=== PATIENT | male | born 1955 | race Caucasian/White ===

== ENCOUNTER 2018-01-24 11:35 | Emergency (ER) | payer OTHER, SELFPAY ==
[2018-01-24 11:44] VITALS: BP 152/74; PULSE 55; RESP 16; TEMP 36.7; O2SAT 98; BMI 26.4
--- NOTE | 2018-01-24 12:06 | ED.EXTPRO ---
HPI - Extremity Problem <Marissa Moraes PA-C - Last Filed: 01/24/18 19:15> General Chief complaint: Extremity Problem,Nontraumatic Stated complaint: POSS BLOOD CLOT LT LEG Time Seen by Provider: 01/24/18 12:06 Source: patient and family Mode of arrival: ambulatory Limitations: no limitations History of Present Illness HPI Narrative: This 62 year old gentleman comes in today due to concern for DVT in his L. leg. Has a history of DVT 5 years ago postoperatively. He states blood testing was done and no genetic predisposition. He states that he started to have calf pain after he did a strenuous climb up [employer] and part [address] up [place] a week ago, and the pain has been gradually worsening. He states that it is the same type of pain that he had with his previous blood clot. They did drive to do the climb, but otherwise has not been immobilized or traveled elsewhere recently. He states that the foot can be a little bit puffy at times but he has not had swelling in the leg. He has or pain with standing long periods, less bothersome with walking a bit. He states that there was no apparent swelling or other signs with his previous DVT either. He did not have any specific known injury on this trip but initially thought was muscle strain. He denies dyspnea, chest pain, nausea, or other new complaints on systems review Related Data Home Medications Medication Instructions Recorded Confirmed multivitamin 1 cap PO EVERY DAY #0 06/20/10 01/24/18 cetirizine [Zyrtec] 1 tab PO DAILY PRN 01/24/18 01/24/18 Previous Rx's Medication Instructions Recorded atorvastatin [Lipitor] 10 mg PO HS #90 tab 07/18/17 levothyroxine 100 mcg PO QAM #90 tab 07/18/17 Allergies Allergy/AdvReac Type Severity Reaction Status Date / Time chlorhexidine [CHLORHEXIDINE] Allergy Mild RASH/HIBICL Verified 01/24/18 11:50 ENS Review of Systems <Marissa Moraes PA-C - Last Filed: 01/24/18 19:15> Review of Systems All systems reviewed & are unremarkable except as noted in HPI and below PFSH <Marissa Moraes PA-C - Last Filed: 01/24/18 19:15> Comment: EtOH 3/week, no street drugs Exam <RAMA Cedillo Last Filed: 01/24/18 19:15> Narrative Exam Narrative: GENERAL APPEARANCE: Patient sitting comfortably, in no distress. NECK/THYROID: Neck supple, no JVD. LUNGS: Clear to auscultation bilaterally. HEART: Regular rate and rhythm without murmur, normal S1, S2, no S3 or S4. EXTREMITIES: No cyanosis or edema. Ankle and calf measurements are equal bilaterally. Bilateral pedal pulses 2+. Minimal left central calf tenderness, none on the right NEUROLOGIC: Alert and oriented, normal speech, gait and coordination. Lower extremity sensation grossly intact Initial Vital Signs Initial Vital Signs: Vital Signs Temperature 98.1 F 01/24/18 11:44 Pulse Rate 55 L 01/24/18 11:44 Respiratory Rate 16 01/24/18 11:44 Blood Pressure 152/74 H 01/24/18 11:44 Pulse Oximetry 98 01/24/18 11:44 <DO Chiquis Chaparro Last Filed: 01/27/18 23:48> Initial Vital Signs Initial Vital Signs: Vital Signs Temperature 98.1 F 01/24/18 11:44 Pulse Rate 55 L 01/24/18 11:44 Respiratory Rate 16 01/24/18 11:44 Blood Pressure 152/74 H 01/24/18 11:44 Pulse Oximetry 98 01/24/18 11:44 Course <RAMA Cedillo Last Filed: 01/24/18 19:15> Orders Ordered: ED Orders 01/24/18 12:14 US periph venous low extrem lt Stat Vital Signs - 8 hr 01/24/18 11:44 01/24/18 13:14 Temperature 98.1 F Pulse Rate 55 L 55 L Respiratory Rate 16 Blood Pressure 152/74 H 122/79 H Pulse Oximetry 98 98 <DO Chiquis Chaparro Last Filed: 01/27/18 23:48> Orders Ordered: ED Orders 01/24/18 12:14 US periph venous low extrem lt Stat Vital Signs - 8 hr 01/24/18 11:44 01/24/18 13:14 Temperature 98.1 F Pulse Rate 55 L 55 L Respiratory Rate 16 Blood Pressure 152/74 H 122/79 H Pulse Oximetry 98 98 MDM - Extremity (Nontraumatic) <Marissa Moraes PA-C - Last Filed: 01/24/18 19:15> Imaging Data Venous US: Radiologist's impression: [address] [address] Ultrasound Report Signed Patient: Neeraj Rodrigues MR#: [id number] : 1955 Acct:[id number] Age/Sex: 62 / M Date of Service: 01/24/18 Loc: ED Accession Number: [id number] Procedure: US periph venous low extrem lt Ordering Provider: Marissa Moraes P.A-C PROCEDURE: US PERIPH VENOUS LOW EXTREM LT INDICATIONS: PAIN; HISTORY DVT TECHNIQUE: Real-time imaging, as well as color and pulse Doppler interrogation, were performed of the lower extremity deep veins from the inguinal ligament to the popliteal fossa. COMPARISON: None. FINDINGS: The deep veins are normally compressible, and free of intraluminal thrombus. Color and pulse Doppler demonstrate normal phasic intraluminal flow. There is normal augmentation response to distal compression maneuver. IMPRESSION: No evidence of left lower extremity deep vein thrombosis. Dictated by: Israel Murphy M.D. on 01/24/2018 at 11:42 Approved by: Israel Murphy M.D. on 01/24/2018 at 11:59 Discharge Plan Departure Patient Disposition: Home Clinical Impression: Pain of left calf Discharge Date/Time: 01/24/18 13:17 Interventions: ED Discharge Assessment Last Done: 01/24/18 13:14 Instructions: DI for Calf Muscle Strain Activity Restrictions/Additional Instructions: Your pain is most likely due to strain from your strenuous climb. Gentle walking is okay. You may want to try [id number] Aleve or ibuprofen for few days to help with pain. You can also take Tylenol as needed. You should return as we talked about if you have acutely worsening symptoms, or new symptoms such as trouble breathing or chest pain. Otherwise, please follow-up with your PCP if this is not improving so that further testing or referral can be done if needed Prescriptions: No Action multivitamin Capsule 1 cap PO EVERY DAY Qty: 0 RF: 0 atorvastatin [Lipitor] 10 MG tablet 10 mg PO HS Qty: 90 RF: 1 levothyroxine 100 MCG tablet 100 mcg PO QAM Qty: 90 RF: 1 cetirizine [Zyrtec] 10 mg Tablet 1 tab PO DAILY PRN (Reason: Allergy Symptoms) RF: 0 Referrals: Manuel Quiroga MD [Primary Care Provider] - <Derrick Lindsey DO - Last Filed: 01/27/18 23:48> Cosign ED Attending Fiona Attestation: I was immediately available in the department for consultation. Documentation has been reviewed. I agree with assessment and plan.
--- NOTE | 2018-01-24 12:14 | DI.US.S_ITS ---
PROCEDURE: US PERIPH VENOUS LOW EXTREM LT INDICATIONS: PAIN; HISTORY DVT TECHNIQUE: Real-time imaging, as well as color and pulse Doppler interrogation, were performed of the lower extremity deep veins from the inguinal ligament to the popliteal fossa. COMPARISON: None. FINDINGS: The deep veins are normally compressible, and free of intraluminal thrombus. Color and pulse Doppler demonstrate normal phasic intraluminal flow. There is normal augmentation response to distal compression maneuver. IMPRESSION: No evidence of left lower extremity deep vein thrombosis. Dictated by: Israel Murphy M.D. on 01/24/2018 at 11:42 Approved by: Israel Murphy M.D. on 01/24/2018 at 11:59
--- NOTE | 2018-01-24 12:17 | ED_ITS ---
HPI - Extremity Problem <Marissa Moraes PA-C - Last Filed: 01/24/18 19:15> General Chief complaint: Extremity Problem,Nontraumatic Stated complaint: POSS BLOOD CLOT LT LEG Time Seen by Provider: 01/24/18 12:06 Source: patient and family Mode of arrival: ambulatory Limitations: no limitations History of Present Illness HPI Narrative: This 62 year old gentleman comes in today due to concern for DVT in his L. leg. Has a history of DVT 5 years ago postoperatively. He states blood testing was done and no genetic predisposition. He states that he started to have calf pain after he did a strenuous climb up [employer] and part way up [place] a week ago, and the pain has been gradually worsening. He states that it is the same type of pain that he had with his previous blood clot. They did drive to do the climb, but otherwise has not been immobilized or traveled elsewhere recently. He states that the foot can be a little bit puffy at times but he has not had swelling in the leg. He has or pain with standing long periods, less bothersome with walking a bit. He states that there was no apparent swelling or other signs with his previous DVT either. He did not have any specific known injury on this trip but initially thought was muscle strain. He denies dyspnea, chest pain, nausea, or other new complaints on systems review Related Data Home Medications Medication Instructions Recorded Confirmed multivitamin 1 cap PO EVERY DAY #0 06/20/10 01/24/18 cetirizine [Zyrtec] 1 tab PO DAILY PRN 01/24/18 01/24/18 Previous Rx's Medication Instructions Recorded atorvastatin [Lipitor] 10 mg PO HS #90 tab 07/18/17 levothyroxine 100 mcg PO QAM #90 tab 07/18/17 Allergies Allergy/AdvReac Type Severity Reaction Status Date / Time chlorhexidine [CHLORHEXIDINE] Allergy Mild RASH/HIBICL Verified 01/24/18 11:50 ENS Review of Systems <Marissa Moraes PA-C - Last Filed: 01/24/18 19:15> Review of Systems All systems reviewed & are unremarkable except as noted in HPI and below PFSH <Marissa Moraes PA-C - Last Filed: 01/24/18 19:15> Comment: EtOH 3/week, no street drugs Exam <RAMA Cedillo Last Filed: 01/24/18 19:15> Narrative Exam Narrative: GENERAL APPEARANCE: Patient sitting comfortably, in no distress. NECK/THYROID: Neck supple, no JVD. LUNGS: Clear to auscultation bilaterally. HEART: Regular rate and rhythm without murmur, normal S1, S2, no S3 or S4. EXTREMITIES: No cyanosis or edema. Ankle and calf measurements are equal bilaterally. Bilateral pedal pulses 2+. Minimal left central calf tenderness, none on the right NEUROLOGIC: Alert and oriented, normal speech, gait and coordination. Lower extremity sensation grossly intact Initial Vital Signs Initial Vital Signs: Vital Signs Temperature 98.1 F 01/24/18 11:44 Pulse Rate 55 L 01/24/18 11:44 Respiratory Rate 16 01/24/18 11:44 Blood Pressure 152/74 H 01/24/18 11:44 Pulse Oximetry 98 01/24/18 11:44 <DO Chiquis Chaparro Last Filed: 01/27/18 23:48> Initial Vital Signs Initial Vital Signs: Vital Signs Temperature 98.1 F 01/24/18 11:44 Pulse Rate 55 L 01/24/18 11:44 Respiratory Rate 16 01/24/18 11:44 Blood Pressure 152/74 H 01/24/18 11:44 Pulse Oximetry 98 01/24/18 11:44 Course <RAMA Cedillo Last Filed: 01/24/18 19:15> Orders Ordered: ED Orders 01/24/18 12:14 US periph venous low extrem lt Stat Vital Signs - 8 hr 01/24/18 11:44 01/24/18 13:14 Temperature 98.1 F Pulse Rate 55 L 55 L Respiratory Rate 16 Blood Pressure 152/74 H 122/79 H Pulse Oximetry 98 98 <DO Chiquis Chaparro Last Filed: 01/27/18 23:48> Orders Ordered: ED Orders 01/24/18 12:14 US periph venous low extrem lt Stat Vital Signs - 8 hr 01/24/18 11:44 01/24/18 13:14 Temperature 98.1 F Pulse Rate 55 L 55 L Respiratory Rate 16 Blood Pressure 152/74 H 122/79 H Pulse Oximetry 98 98 MDM - Extremity (Nontraumatic) <Marissa Moraes PA-C - Last Filed: 01/24/18 19:15> Imaging Data Venous US: Radiologist's impression: [address] [address] Ultrasound Report Signed Patient: Neeraj Rodrigues MR#: [id number] : 1955 Acct:[id number] Age/Sex: 62 / M Date of Service: 01/24/18 Loc: ED Accession Number: [id number] Procedure: US periph venous low extrem lt Ordering Provider: Marissa Moraes P.A-C PROCEDURE: US PERIPH VENOUS LOW EXTREM LT INDICATIONS: PAIN; HISTORY DVT TECHNIQUE: Real-time imaging, as well as color and pulse Doppler interrogation, were performed of the lower extremity deep veins from the inguinal ligament to the popliteal fossa. COMPARISON: None. FINDINGS: The deep veins are normally compressible, and free of intraluminal thrombus. Color and pulse Doppler demonstrate normal phasic intraluminal flow. There is normal augmentation response to distal compression maneuver. IMPRESSION: No evidence of left lower extremity deep vein thrombosis. Dictated by: Israel Murphy M.D. on 01/24/2018 at 11:42 Approved by: Israel Murphy M.D. on 01/24/2018 at 11:59 Discharge Plan Departure Patient Disposition: Home Clinical Impression: Pain of left calf Discharge Date/Time: 01/24/18 13:17 Interventions: ED Discharge Assessment Last Done: 01/24/18 13:14 Instructions: DI for Calf Muscle Strain Activity Restrictions/Additional Instructions: Your pain is most likely due to strain from your strenuous climb. Gentle walking is okay. You may want to try [id number] Aleve or ibuprofen for few days to help with pain. You can also take Tylenol as needed. You should return as we talked about if you have acutely worsening symptoms, or new symptoms such as trouble breathing or chest pain. Otherwise, please follow-up with your PCP if this is not improving so that further testing or referral can be done if needed Prescriptions: No Action multivitamin Capsule 1 cap PO EVERY DAY Qty: 0 RF: 0 atorvastatin [Lipitor] 10 MG tablet 10 mg PO HS Qty: 90 RF: 1 levothyroxine 100 MCG tablet 100 mcg PO QAM Qty: 90 RF: 1 cetirizine [Zyrtec] 10 mg Tablet 1 tab PO DAILY PRN (Reason: Allergy Symptoms) RF: 0 Referrals: Manuel Quiroga MD [Primary Care Provider] - <Derrick Lindsey DO - Last Filed: 01/27/18 23:48> Cosign ED Attending Fiona Attestation: I was immediately available in the department for consultation. Documentation has been reviewed. I agree with assessment and plan.
[2018-01-24 13:14] VITALS: BP 122/79; PULSE 55; O2SAT 98
== END 2018-01-24 13:17 | disposition home or self-care (01) ==
PROVIDERS: Emergency Provider Internal Medicine; PCP Family Medicine
DX: M79.662 Pain in left lower leg (principal)
CPT/HCPCS: 93971; 99282; 99284

== ENCOUNTER → 2018-04-04 08:09 | Outpatient (CLI) | payer OTHER, SELFPAY ==
[2018-04-04 10:19] LABS: Add Manual Diff / Slide Review NO; Basophils Percent Auto 0.3 % (0-2); Eosinophils Percent Auto 1.2 % (2-4); Hematocrit 43.3 % (41-53); Hemoglobin 14.5 g/dL (13.5-17.5); Lymphocytes Percent Auto 31.8 % (25-40); Mean Corpuscular HGB Conc 33.5 % (30-36); Mean Corpuscular Hemoglobin 31.6 PG (26-34); Mean Corpuscular Volume 94.3 fL (80-100); Monocytes Percent Auto 6.9 % (3-14); Neutrophils Absolute Auto 4500 /uL (3000-5900); Neutrophils Percent Auto 59.8 % (50-75); Platelet Count 177 X10^3/uL (150-400); Red Blood Cell Count 4.59 X10^6/uL (4.5-5.9); Red Cell Distribution Width 12.9 % (11.6-14.8); White Blood Cell Count 7.6 X10^3/uL (4.5-11.0)
[2018-04-04 10:30] LABS: Alanine Aminotransferase 29 IU/L (21-72); Albumin 4.2 g/dL (3.5-5.0); Albumin Globulin Ratio 1.6 (1.0-2.8); Alkaline Phosphatase 50 U/L (38-126); Aspartate Aminotransferase 23 IU/L (17-59); BUN Creatinine Ratio 19.1 (6-22); Bilirubin Total 1.1 mg/dL (0.2-1.3); Blood Urea Nitrogen 21 mg/dL (9-20); Calcium 9.3 mg/dL (8.4-10.2); Carbon Dioxide 31 mmol/L (22-32); Chloride 103 mmol/L (98-107); Cholesterol 171 mg/dL (140-199); Estimated Glomerular Filt Rate > 60.0 mL/min (>60); Globulin 2.7 g/dL (1.7-4.1); Glucose 90 mg/dL (80-110); HDL Cholesterol 47 mg/dL (40-60); HEMOLYSIS < 15 (0-50); LDL Cholesterol Calculated 99 mg/dL (<100); Potassium 4.1 mmol/L (3.4-5.1); Sodium 143 mmol/L (137-145); Total Protein 6.9 g/dL (6.3-8.2); Triglycerides 127 mg/dL (35-150)
[2018-04-04 10:56] LABS: TSH w/ Reflex to FT4 3.86 uIU/mL (0.47-4.68)
== END ==
PROVIDERS: PCP Family Medicine; Visit Provider Family Medicine
DX: E03.9 Hypothyroidism, unspecified (principal); E78.5 Hyperlipidemia, unspecified; I10 Essential (primary) hypertension
CPT/HCPCS: 36415; 80053; 80061; 84153; 84443; 85025

== ENCOUNTER → 2019-03-08 08:48 | Outpatient (CLI) | payer OTHER, SELFPAY ==
[2019-03-08 09:34] LABS: Cholesterol 165 mg/dL (140-199); HDL Cholesterol 44 mg/dL (40-60); LDL Cholesterol Calculated 94 mg/dL (<100); Triglycerides 136 mg/dL (35-150)
[2019-03-08 10:39] LABS: Thyroid Stimulating Hormone 2.57 uIU/mL (0.47-4.68)
== END ==
PROVIDERS: PCP Family Medicine; Visit Provider Family Medicine
DX: E03.9 Hypothyroidism, unspecified (principal); Z13.220 Encounter for screening for lipoid disorders; Z13.6 Encounter for screening for cardiovascular disorders
CPT/HCPCS: 80061; 84443

== ENCOUNTER 2020-01-12 11:18 | Emergency (ER) | payer OTHER, SELFPAY ==
[2020-01-12] VITALS (10 sets, daily range): BP systolic 121–143; BP diastolic 71–92; PULSE 49–65; RESP 12–20; TEMP 36.6; O2SAT 98–100; BMI 25.4
--- NOTE | 2020-01-12 11:26 | DI.RAD.S_ITS ---
PROCEDURE: XR CHEST 1V INDICATIONS: chest pain TECHNIQUE: One view of the chest was acquired. COMPARISON: [facility], , CHEST 2 VIEW, 07/24/2009, 15:56. FINDINGS: Surgical changes and devices: None. Lungs and pleura: Lungs are clear. No pleural effusions or pneumothorax. Mediastinum: Mediastinal contours appear normal. Heart size is normal. Bones and chest wall: No suspicious bony lesions. Overlying soft tissues appear unremarkable. IMPRESSION: No acute cardiopulmonary pathology. Dictated by: Jarek Ruvalcaba M.D. on 01/12/2020 at 12:14 Approved by: Jarek Ruvalcaba M.D. on 01/12/2020 at 12:15
[2020-01-12] MEDS: ASPIRIN 81 MG CHEW TAB 324 MG PO (11:36)
[2020-01-12 11:44] LABS: Add Manual Diff / Slide Review NO; Basophils Absolute Auto 0 /uL (0-100); Basophils Percent Auto 0.4 % (0-2); Eosinophils Absolute Auto 100 /uL (0-450); Eosinophils Percent Auto 1.4 % (2-4); Hematocrit 45.4 % (41-53); Hemoglobin 15.2 g/dL (13.5-17.5); Lymphocytes Absolute Auto 1900 /uL (1100-4500); Lymphocytes Percent Auto 18.1 % (25-40); Mean Corpuscular HGB Conc 33.5 % (30-36); Mean Corpuscular Hemoglobin 31.3 PG (26-34); Mean Corpuscular Volume 93.2 fL (80-100); Monocytes Absolute Auto 700 /uL (0-900); Neutrophils Absolute Auto 7700 /uL (1500-7000); Neutrophils Percent Auto 73.1 % (50-75); Platelet Count 163 X10^3/uL (150-400); Red Blood Cell Count 4.87 X10^6/uL (4.5-5.9); Red Cell Distribution Width 13.2 % (11.6-14.8); White Blood Cell Count 10.5 X10^3/uL (4.5-11.0)
[2020-01-12 11:48] LABS: Prothrombin Time 11.6 SECONDS (10.1-12.7)
[2020-01-12 11:51] LABS: PTT Partial Thromboplastin Tim 30 SECONDS (26.4-36.2)
[2020-01-12 11:54] LABS: Alanine Aminotransferase 19 IU/L (<50); Albumin 4.3 g/dL (3.5-5.0); Albumin Globulin Ratio 1.7 (1.0-2.8); Alkaline Phosphatase 69 U/L (38-126); Aspartate Aminotransferase 25 IU/L (17-59); BUN Creatinine Ratio 20.8 (6-22); Bilirubin Total 0.9 mg/dL (0.2-1.3); Blood Urea Nitrogen 20 mg/dL (9-20); Calcium 9.8 mg/dL (8.4-10.2); Carbon Dioxide 26 mmol/L (22-32); Chloride 108 mmol/L (98-107); Creatine Kinase 111 U/L (55-170); Estimated Glomerular Filt Rate > 60.0 mL/min (>60); Globulin 2.6 g/dL (1.7-4.1); Glucose 114 mg/dL (80-110); HEMOLYSIS < 15 (0-50); Lipase 82 U/L (23-300); Potassium 3.8 mmol/L (3.4-5.1); Sodium 138 mmol/L (137-145); Total Protein 6.9 g/dL (6.3-8.2)
[2020-01-12 12:03] LABS: NT-proBNP (BNP-Adult 18+) 99 pg/mL (<125)
[2020-01-12 12:05] LABS: Troponin I < 0.012 ng/mL (0.01-0.034)
[2020-01-12 12:08] LABS: CKMB % Relative Index 1.3 % (1.5-5.0); Creatine Kinase MB 1.41 ng/mL (<2.37)
[2020-01-12 12:40] LABS: TSH w/ Reflex to FT4 0.96 uIU/mL (0.47-4.68)
[2020-01-12 15:06] LABS: Creatine Kinase 89 U/L (55-170)
[2020-01-12 15:17] LABS: Troponin I < 0.012 ng/mL (0.01-0.034)
--- NOTE | 2020-01-12 21:08 | ED_ITS ---
HPI - Chest Pain <Kevin RUFINO Moseley - Last Filed: 01/12/20 21:45> General Chief Complaint: Chest Pain Stated Complaint: SOB/DIZZINESS/SWEATING/ HEART BEAT IRREG Time Seen by Provider: 01/12/20 12:21 Source: patient Mode of arrival: Ambulatory Limitations: no limitations History of Present Illness HPI narrative: This is a 64 year female, nonsmoker, who has chronic condition as hypothyroidism presents to ED with chief complain of intermittent exertional short of breath and feels like his heart is skipping with weird sensation in his chest and cold sweats. Patient denies chest pain or pressure, nausea or vomiting, or calf pain/swelling. Patient 1st noticed during climbing [place] about 3 weeks ago with a backpack and feeling fluttering in his chest. The next day he was in high altitude between [id number] ft. ascending [place] and had similar symptoms for 30-45 minutes and when he slowed down he felt improved and had no problem during the rest of the trip. This morning patient was picking up garbage and felt similar symptoms of short of breath, generalized weakness, and got clammy and decided to come to ED for an evaluation. Patient's check his blood sugar and it was read as 96 mg/dL. He states usually these symptoms occurred during mornings. Patient reports he had 1 episode of AFib after the surgery and states he does not feel quite like at that time. Patient states he lives very active life by running at least 3 times a week and daily walks. He was told his last cholesterol check was good. He reports strong family history of MIs in his father age 40's and maternal grandfather in early 60s. Patient had started levothyroxine after his TSH came back as 12. Last blood test about an year ago, the TSH has improve to 2. Patient reports losing significant weight but denies change in skin/hair, diarrhea, restlessness, enlarged neck size. Related Data Home Medications Medication Instructions Recorded Confirmed multivitamin 1 cap PO EVERY DAY #0 06/20/10 01/12/20 cetirizine [Zyrtec] 1 tab PO DAILY PRN 01/24/18 01/12/20 Previous Rx's Medication Instructions Recorded atorvastatin 10 mg tablet 10 mg PO HS #90 tab 02/19/19 levothyroxine 100 mcg tablet 100 mcg PO DAILY #90 tab 02/19/19 Allergies Allergy/AdvReac Type Severity Reaction Status Date / Time chlorhexidine [CHLORHEXIDINE] Allergy Mild RASH/HIBICL Verified 01/12/20 11:25 ENS Review of Systems <RUFINO Salcedo - Last Filed: 01/12/20 21:45> Review of Systems Narrative: General: Denies fever, chills, (+) fatigue, malaise, sweats. HEENT: Denies sinus pain, ear pain, sore throat, difficulty swallowing, dizzine ss. Respiratory: See HPI Cardiovascular: See HPI Gastrointestinal: Denies nausea, vomiting, abdominal pain, diarrhea, constipation, melena. : Denies dysuria, frequency, incontinence, hematuria, urinary retention. Musculoskeletal: Denies joint pain or bony pain. Skin: Denies rash, skin lesions, or other. Neurologic: Denies weakness, headache, numbness, change in speech, confusion, seizures, incoordination. Psychiatric: No concerning psychosocial issues. 12-point review of systems is negative except for those stated above. Patient History <RUFINO Salcedo - Last Filed: 01/12/20 21:45> Medical History Chicken pox (Resolved ~1959) Hearing deficit (Chronic) History of DVT (deep vein thrombosis) (Ruled-out ~2010) Hyperlipidemia (Chronic) Hypothyroidism (Chronic ~2014) Measles (Resolved ~1959) Mumps (Resolved ~1959) Tinnitus (Chronic ~2009) Surgical History Anesthesia (Resolved) History of knee surgery (Resolved ~1981) History of tonsillectomy (Resolved) Status post hernia repair (~2010) Family History Father Multiple myeloma Heart attack Cancer Heart disease Grandfather No problems noted. Grandfather No problems noted. Social History Smoking Status: Never smoker Smoking Status: Never smoker alcohol intake frequency: a few times a week Substance Use Type: does not use Exam <RUFINO Salcedo - Last Filed: 01/12/20 21:45> Narrative Exam Narrative: GEN: Alert, oriented x 3, well appearing and nourished, and in no acute distress. Head: Normal cephalic, atraumatic. No scalp or temporal tenderness, palpable mass or rash. EYES: Pupils are equal, round, and reactive to light and accommodation. Extraocular muscles are intact bilaterally. There is no subconjunctival hemorrhage, exudate and sclera non-icteric. ENT: Hearing grossly intact. Nose without bleeding, purulent discharge or deviation. Mucous membrane moist, no mucosal lesion. Throat without erythema, tonsillar hypertrophy or exudate. Uvula in midline, airway patent. Neck: Trachea in midline. No JVD, non-tender without lymphadenopathy. No masses or thyroid megaly. Supple, non-tender and no meningeal signs. CARDIAC: Normal hema rate and rhythm without murmurs, gallops, or rubs. No chest wall tenderness. No peripheral edema, cyanosis or pallor. Capillary refill is less than 2 seconds. RESPIRATORY: Lungs are clear to auscultate bilaterally. No cough, wheezes, rales, or rhonchi. No stridor, respiratory distress, increase work of breathing, or accessary muscle used. ABD: Abdomen soft, nontender and non-distended. No guarding or rebound tenderness to palpate. Bowel sounds are normal in all 4 quadrants. There is no palpable masses or organomegaly. EXT: Full painless ROM of all extremities with no loss of sensation, strength, effusion or edema. SKIN: Warm, dry, normal color for patient. No erythema, lesions or rash over visible areas. BACK: Nontender without deformity or crepitance. No flank tenderness. NEUROLOGICAL: Alert and oriented to place, time and person. Sensation and motor function intact bilaterally. No facial droops, dysphasia. PSYCHIATRIC: Good judgement and reason, without hallucinations, abnormal affect or abnormal behaviors during the examination. Patient is not suicidal. Initial Vital Signs Initial Vital Signs: Vital Signs Temperature 97.8 F 01/12/20 11:22 Pulse Rate 65 01/12/20 11:22 Respiratory Rate 18 01/12/20 11:22 Blood Pressure 142/92 H 01/12/20 11:22 Pulse Oximetry 98 01/12/20 11:22 <Nav Rice MD - Last Filed: 01/13/20 08:12> Initial Vital Signs Initial Vital Signs: Vital Signs Temperature 97.8 F 01/12/20 11:22 Pulse Rate 65 01/12/20 11:22 Respiratory Rate 18 01/12/20 11:22 Blood Pressure 142/92 H 01/12/20 11:22 Pulse Oximetry 98 01/12/20 11:22 Scores <RUFINO Salcedo - Last Filed: 01/12/20 21:45> HEART Score Heart Score history: Slightly Suspicious Heart Score EKG: Normal Heart Score Age: > or = 65 years old Heart Score risk factors: 1-2 risk factors Heart Score troponin: < or = to normal limit Heart Score Total: 3 Course <RUFINO Salcedo - Last Filed: 01/12/20 21:45> Orders Ordered: Discontinued Medications Aspirin (Aspirin Chew) 324 mg PO NOW ONE Stop: 01/12/20 11:27 Last Admin: 01/12/20 11:36 Dose: 324 mg Documented by: YESSY Vital Signs Vital signs: Vital Signs - 8 hr 01/12/20 13:30 01/12/20 14:00 01/12/20 14:30 Pulse Rate 49 L 50 L 50 L Respiratory Rate 12 18 14 Blood Pressure 140/71 143/78 H 133/80 Pulse Oximetry 98 98 98 01/12/20 15:37 Pulse Rate 55 L Respiratory Rate 14 Blood Pressure 126/85 Pulse Oximetry 99 <Nav Rice MD - Last Filed: 01/13/20 08:12> Orders Ordered: Discontinued Medications Aspirin (Aspirin Chew) 324 mg PO NOW ONE Stop: 01/12/20 11:27 Last Admin: 01/12/20 11:36 Dose: 324 mg Documented by: YESSY Vital Signs Vital signs: Vital Signs - 8 hr 01/12/20 13:30 01/12/20 14:00 01/12/20 14:30 Pulse Rate 49 L 50 L 50 L Respiratory Rate 12 18 14 Blood Pressure 140/71 143/78 H 133/80 Pulse Oximetry 98 98 98 01/12/20 15:37 Pulse Rate 55 L Respiratory Rate 14 Blood Pressure 126/85 Pulse Oximetry 99 MDM - Chest Pain <RUFINO Salcedo - Last Filed: 01/12/20 21:45> Differential Diagnosis Differential diagnosis: Likely stable angina, atypical chest pain, st elevation myocardial infarction and other (Arrhythmia, hypo/hyperthyroidism, bradycardia) Medical Records Data Attestation: I reviewed the patient's medical records. Lab Data Attestation: I reviewed the patient's lab results. Result diagrams: 01/12/20 11:33 01/12/20 11:33 Labs: Lab Results 01/12/20 01/12/20 01/12/20 Range/Units 11:33 11:33 11:33 WBC 10.5 (4.5-11.0) X10^3/uL RBC 4.87 (4.5-5.9) X10^6/uL Hgb 15.2 (13.5-17.5) g/dL Hct 45.4 (41-53) % MCV 93.2 (80-100) fL MCH 31.3 (26-34) PG MCHC 33.5 (30-36) % RDW 13.2 (11.6-14.8) % Plt Count 163 (150-400) X10^3/uL Neut % (Auto) 73.1 (50-75) % Lymph % (Auto) 18.1 L (25-40) % [place] % (Auto) 7.0 (3-14) % Eos % (Auto) 1.4 L (2-4) % Baso % (Auto) 0.4 (0-2) % Neut # (Auto) 7700 H (0532-7351) /uL Lymph # (Auto) 1900 (5532-8627) /uL [place] # (Auto) 700 (0-900) /uL Eos # (Auto) 100 (0-450) /uL Baso # (Auto) 0 (0-100) /uL PT 11.6 (10.1-12.7) SECONDS INR 1.0 (0.9-1.3) APTT 30 (26.4-36.2) SECONDS Sodium 138 (137-145) mmol/L Potassium 3.8 (3.4-5.1) mmol/L Chloride 108 H (98-107) mmol/L Carbon Dioxide 26 (22-32) mmol/L BUN 20 (9-20) mg/dL Creatinine 0.96 (0.66-1.25) mg/dL Estimated GFR > 60.0 (>60) mL/min BUN/Creatinine Ratio 20.8 (6-22) Glucose 114 H (80-110) mg/dL Calcium 9.8 (8.4-10.2) mg/dL Magnesium 2.0 (1.6-2.3) mg/dL Total Bilirubin 0.9 (0.2-1.3) mg/dL AST 25 (17-59) IU/L ALT 19 (<50) IU/L Alkaline Phosphatase 69 (38-126) U/L Total Creatine Kinase 111 (55-170) U/L CK-MB (CK-2) 1.41 (<2.37) ng/mL CK-MB (CK-2) Rel Index 1.3 L (1.5-5.0) % Troponin I < 0.012 (0.01-0.034) ng/mL NT-Pro-B Natriuret Pep (<125) pg/mL Total Protein 6.9 (6.3-8.2) g/dL Albumin 4.3 (3.5-5.0) g/dL Globulin 2.6 (1.7-4.1) g/dL Albumin/Globulin Ratio 1.7 (1.0-2.8) Lipase 82 (23-300) U/L TSH (0.47-4.68) uIU/mL 01/12/20 01/12/20 01/12/20 Range/Units 11:33 11:33 14:45 WBC (4.5-11.0) X10^3/uL RBC (4.5-5.9) X10^6/uL Hgb (13.5-17.5) g/dL Hct (41-53) % MCV (80-100) fL MCH (26-34) PG MCHC (30-36) % RDW (11.6-14.8) % Plt Count (150-400) X10^3/uL Neut % (Auto) (50-75) % Lymph % (Auto) (25-40) % [place] % (Auto) (3-14) % Eos % (Auto) (2-4) % Baso % (Auto) (0-2) % Neut # (Auto) (3636-4175) /uL Lymph # (Auto) (7131-3776) /uL [place] # (Auto) (0-900) /uL Eos # (Auto) (0-450) /uL Baso # (Auto) (0-100) /uL PT (10.1-12.7) SECONDS INR (0.9-1.3) APTT (26.4-36.2) SECONDS Sodium (137-145) mmol/L Potassium (3.4-5.1) mmol/L Chloride (98-107) mmol/L Carbon Dioxide (22-32) mmol/L BUN (9-20) mg/dL Creatinine (0.66-1.25) mg/dL Estimated GFR (>60) mL/min BUN/Creatinine Ratio (6-22) Glucose (80-110) mg/dL Calcium (8.4-10.2) mg/dL Magnesium (1.6-2.3) mg/dL Total Bilirubin (0.2-1.3) mg/dL AST (17-59) IU/L ALT (<50) IU/L Alkaline Phosphatase (38-126) U/L Total Creatine Kinase 89 (55-170) U/L CK-MB (CK-2) TNP (<2.37) ng/mL CK-MB (CK-2) Rel Index TNP (1.5-5.0) % Troponin I < 0.012 (0.01-0.034) ng/mL NT-Pro-B Natriuret Pep 99 (<125) pg/mL Total Protein (6.3-8.2) g/dL Albumin (3.5-5.0) g/dL Globulin (1.7-4.1) g/dL Albumin/Globulin Ratio (1.0-2.8) Lipase (23-300) U/L TSH 0.96 (0.47-4.68) uIU/mL Imaging Data Chest x-ray: Radiologist's Impression: [address] [address] XRay Report Signed Patient: Neeraj Rodrigues GMR#: [id number] : 5Acct:[id number] Age/Sex: 64 / MDate of Service: 01/12/20 Loc: ED Accession Number: [id number] Procedure: XR chest 1V Ordering Provider: Nav Rice MD PROCEDURE: XR CHEST 1V INDICATIONS: chest pain TECHNIQUE: One view of the chest was acquired. COMPARISON: [facility], , CHEST 2 VIEW, 07/24/2009, 15:56. FINDINGS: Surgical changes and devices: None. Lungs and pleura: Lungs are clear. No pleural effusions or pneumothorax. Mediastinum: Mediastinal contours appear normal. Heart size is normal. Bones and chest wall: No suspicious bony lesions. Overlying soft tissues appear unremarkable. IMPRESSION: No acute cardiopulmonary pathology. Dictated by: Jarek Ruvalcaba M.D. on 01/12/2020 at 12:14 Approved by: Jarek Ruvalcaba M.D. on 01/12/2020 at 12:15 ECG Data Attestation: I personally reviewed and interpreted this ECG as follows: Prior ECG tracings: not available for review Interpretation: Sinus bradycardia rate at 55. Normal [place] interval 189, QRS duration 83, QT/QTc 418/[address] elevation or depression. MDM Narrative Medical decision making narrative: This is a 64-year-old male who presents to with intermittent exertional short of breath, generalized weakness, fluttering in his chest for last 3 weeks and he had another episode this morning he picked up garbage. Patient had 1 episode of AFib after the surgery. Patient is not currently taking anticoagulants or aspirin. Patient has strong family history of cardiac events at early age. Patient lives physically active life by exercising regularly. Heart score is 3 (low risk). EKG shows sinus bradycardia rate at [address] changes. No acute findings with normal heart size. Two sets of cardiac enzymes 3 hour post was negative. Unremarkable CMP results including magnesium. Normal lipase. TSH is 0.96 which has been decreased from 2 (according to the spouse) without recent medication dose change. Patient continued to not having chest pain in ED. He was medicated with full dose of aspirin during triage. Patient's symptoms concern for arrhythmia including AFib, bradycardia, supertherapeutic hypothyroidism with treatment with levothyroxine, etc. 1520- Spoke with Dr. Quiroga with physical findings, EKG and lab test and it was recommended to follow up outpatiently with event monitor, stress test and possibly a referral to health education coordinator. Findings were shared with the patient and spouse. Return precautions were discussed with patient and patient advised to take baby aspirin daily until he is seen by Dr. Quiroga. Patient and spouse verbalized understanding in agreement with the treatment plan. <Nav Rice MD - Last Filed: 01/13/20 08:12> Lab Data Labs: Lab Results 01/12/20 01/12/20 01/12/20 Range/Units 11:33 11:33 11:33 WBC 10.5 (4.5-11.0) X10^3/uL RBC 4.87 (4.5-5.9) X10^6/uL Hgb 15.2 (13.5-17.5) g/dL Hct 45.4 (41-53) % MCV 93.2 (80-100) fL MCH 31.3 (26-34) PG MCHC 33.5 (30-36) % RDW 13.2 (11.6-14.8) % Plt Count 163 (150-400) X10^3/uL Neut % (Auto) 73.1 (50-75) % Lymph % (Auto) 18.1 L (25-40) % [place] % (Auto) 7.0 (3-14) % Eos % (Auto) 1.4 L (2-4) % Baso % (Auto) 0.4 (0-2) % Neut # (Auto) 7700 H (2325-0057) /uL Lymph # (Auto) 1900 (1924-2313) /uL [place] # (Auto) 700 (0-900) /uL Eos # (Auto) 100 (0-450) /uL Baso # (Auto) 0 (0-100) /uL PT 11.6 (10.1-12.7) SECONDS INR 1.0 (0.9-1.3) APTT 30 (26.4-36.2) SECONDS Sodium 138 (137-145) mmol/L Potassium 3.8 (3.4-5.1) mmol/L Chloride 108 H (98-107) mmol/L Carbon Dioxide 26 (22-32) mmol/L BUN 20 (9-20) mg/dL Creatinine 0.96 (0.66-1.25) mg/dL Estimated GFR > 60.0 (>60) mL/min BUN/Creatinine Ratio 20.8 (6-22) Glucose 114 H (80-110) mg/dL Calcium 9.8 (8.4-10.2) mg/dL Magnesium 2.0 (1.6-2.3) mg/dL Total Bilirubin 0.9 (0.2-1.3) mg/dL AST 25 (17-59) IU/L ALT 19 (<50) IU/L Alkaline Phosphatase 69 (38-126) U/L Total Creatine Kinase 111 (55-170) U/L CK-MB (CK-2) 1.41 (<2.37) ng/mL CK-MB (CK-2) Rel Index 1.3 L (1.5-5.0) % Troponin I < 0.012 (0.01-0.034) ng/mL NT-Pro-B Natriuret Pep (<125) pg/mL Total Protein 6.9 (6.3-8.2) g/dL Albumin 4.3 (3.5-5.0) g/dL Globulin 2.6 (1.7-4.1) g/dL Albumin/Globulin Ratio 1.7 (1.0-2.8) Lipase 82 (23-300) U/L TSH (0.47-4.68) uIU/mL 01/12/20 01/12/20 01/12/20 Range/Units 11:33 11:33 14:45 WBC (4.5-11.0) X10^3/uL RBC (4.5-5.9) X10^6/uL Hgb (13.5-17.5) g/dL Hct (41-53) % MCV (80-100) fL MCH (26-34) PG MCHC (30-36) % RDW (11.6-14.8) % Plt Count (150-400) X10^3/uL Neut % (Auto) (50-75) % Lymph % (Auto) (25-40) % [place] % (Auto) (3-14) % Eos % (Auto) (2-4) % Baso % (Auto) (0-2) % Neut # (Auto) (6048-7003) /uL Lymph # (Auto) (5495-2190) /uL [place] # (Auto) (0-900) /uL Eos # (Auto) (0-450) /uL Baso # (Auto) (0-100) /uL PT (10.1-12.7) SECONDS INR (0.9-1.3) APTT (26.4-36.2) SECONDS Sodium (137-145) mmol/L Potassium (3.4-5.1) mmol/L Chloride (98-107) mmol/L Carbon Dioxide (22-32) mmol/L BUN (9-20) mg/dL Creatinine (0.66-1.25) mg/dL Estimated GFR (>60) mL/min BUN/Creatinine Ratio (6-22) Glucose (80-110) mg/dL Calcium (8.4-10.2) mg/dL Magnesium (1.6-2.3) mg/dL Total Bilirubin (0.2-1.3) mg/dL AST (17-59) IU/L ALT (<50) IU/L Alkaline Phosphatase (38-126) U/L Total Creatine Kinase 89 (55-170) U/L CK-MB (CK-2) TNP (<2.37) ng/mL CK-MB (CK-2) Rel Index TNP (1.5-5.0) % Troponin I < 0.012 (0.01-0.034) ng/mL NT-Pro-B Natriuret Pep 99 (<125) pg/mL Total Protein (6.3-8.2) g/dL Albumin (3.5-5.0) g/dL Globulin (1.7-4.1) g/dL Albumin/Globulin Ratio (1.0-2.8) Lipase (23-300) U/L TSH 0.96 (0.47-4.68) uIU/mL Discharge Plan Departure Patient Disposition: Home Clinical Impression: Atypical chest pain Discharge Date/Time: 01/12/20 15:38 Instructions: DI for Atypical Chest Pain Activity Restrictions/Additional Instructions: You have been diagnosed with [intermittent atypical chest pain, exertional short of breath with weakness. EKG is sinus bradycardia. Two sets of cardiac enzymes were negative. TSH today is within normal at lower range. Chest x-ray without acute findings today. You may had intermittent episodes of arrhythmia which needs to be investigated. I spoke with Dr. Quiroga and he is expecting you to call his office to arrange outpatient studies for event monitor, stress test, and possible cardiology referral as well as following up on TSH and med ication dosage]. What to do: *Take your medications as directed. *Follow up with your primary care provider in 2-3 days, call for an appointment. Let them know you were seen in the ED and that we asked you to be seen in follow up. *Return to ED if you have any new, worsening, or concerning symptoms, such as [increasing/different chest pain, breathing difficulty, dizziness, nausea or vomiting, fever, unable to tolerate fluids, or any acute concerns]. Prescriptions: No Action multivitamin Capsule 1 cap PO EVERY DAY Qty: 0 RF: 0 atorvastatin [Lipitor] 10 mg tablet 10 mg PO HS Qty: 90 RF: 3 levothyroxine 100 mcg tablet 100 mcg PO DAILY Qty: 90 RF: 3 cetirizine [Zyrtec] 10 mg Tablet 1 tab PO DAILY PRN (Reason: Allergy Symptoms) RF: 0 Referrals: Manuel Quiroga MD [Primary Care Provider] -
== END 2020-01-12 15:38 | disposition home or self-care (01) ==
PROVIDERS: Emergency Medicine; Emergency Provider Nurse Practitioner Family; PCP Family Medicine
DX: R07.89 Other chest pain (principal); R00.1 Bradycardia, unspecified; R06.02 Shortness of breath; E03.9 Hypothyroidism, unspecified
CPT/HCPCS: 36415; 71045; 80053; 82550; 82553; 83690; 83735; 83880; 84443; 84484; 85025; 85610; 85730; 93005; 99284

== ENCOUNTER → 2020-01-20 08:24 | Outpatient (CLI) | payer OTHER, SELFPAY ==
[2020-01-21 01:49] LABS: COVID19 Sendout Not Detected (Not Detect)
== END ==
PROVIDERS: PCP Family Medicine; Visit Provider Physician Assistant
DX: Z11.59 Encounter for screening for other viral diseases (principal)
CPT/HCPCS: 87635

== ENCOUNTER → 2020-01-23 09:39 | Outpatient (CLI) | payer OTHER, SELFPAY ==
--- NOTE | 2020-01-23 14:45 | P.PCN_ITS ---
Cardiac Stress Test Report Referral & Results Date Patient Seen: 01/23/20 Time Patient Seen: 14:00 Requesting provider: Manuel Quiroga Indication: Chest pain Rest ECG: Sinus rhythm with occasional PACs Procedure Note: Today following both written and verbal informed consent the patient was exercised according to a standard Ye protocol patient went for a total of 8 minutes 20 seconds achieving a maximum heart rate of 162 maximum systolic blood pressure of 230. This is approximately 10.1 METs. Exercise was terminated at this point because of fatigue. Patient was also given Cardiolite through a previously started Hep-Lock IV by the nuclear weapons mechanical specialist approximately 1 minute prior to the cessation of exercise. Exaggerated hemodynamic response to exercise. Normal vitals at baseline. Occasional PACs at rest, but relatively frequent during recovery. No signs or symptoms of angina. Presenting symptom not reproduced on exercise. Diffuse ST deviations resolving rapidly with rest. Normal exercise capacity (VICENTE 0% on active scale). Impression: Low probability for ischemia. Will await perfusion imaging. Consider home cardiac monitoring of rhythm disorders are an ongoing concern. Please note: Actual ECG tracings can be found in the PACS system.
--- NOTE | 2020-01-24 03:50 | DI.NM.S_ITS ---
DATE OF SERVICE: 01/23/2020 PROCEDURE PERFORMED: Exercise treadmill stress and rest myocardial perfusion imaging with gating to assess ejection fraction and regional wall motion. Performed as a one-day study. INDICATIONS: The patient is a 64-year-old male recently evaluated in the ED with atypical chest pain. ORDERING PROVIDER: Dr. Manuel Quiroga CARDIAC STRESS: The patient was able to exercise for 8 minutes 20 seconds on a standard Ye protocol, suggesting good exercise capacity with an VICENTE of -5%. He had a normal heart rate response to exercise, achieving a maximum heart rate of 162 BPM (105% of his predicted maximum). He had a moderate hypertensive blood pressure response with a resting blood pressure of 128/88, increasing to a maximum of 230/100. He had no chest discomfort. His resting ECG shows sinus rhythm with PACs. With exercise, there are no significant ST- segment shifts. He had no arrhythmias, although he had return of PACs in recovery. At 7 minutes 30 seconds of exercise at a heart rate of 155 BPM, 25.1 millicuries of technetium-99m Myoview was injected and the patient was imaged 20 minutes later using a gated SPECT acquisition protocol. Earlier in the day, he had been injected with 10.6 millicuries of technetium-99m Myoview at rest and was imaged 30 minutes later, again, using a gated SPECT acquisition protocol. FINDINGS: 1. Raw data: Myocardial tracer uptake appears to be fairly poor for unexplained reasons and image quality is quite marginal although the prone images are of fairly good quality. The lung/heart ratio was normal at 0.39 and the TID ratio was normal at 0.81. 2. Quantitated gated SPECT: Post-stress ejection fraction is estimated at 68% without any focal wall motion abnormality. Resting ejection fraction is 75% with a mildly increased left ventricular end diastolic volume of 130 mL. 3. Myocardial perfusion imaging: Post-stress supine images are fairly poor and show a heterogeneous pattern of tracer uptake with mildly reduced counts in the proximal inferior wall as well as the mid and distal anterior wall. However, all these defects resolve on the prone images which show a uniform, normal perfusion pattern without any perfusion defects. The resting images show a similar perfusion pattern although with resolution of the anterolateral perfusion defect seen on the post-stress supine images. IMPRESSION: 1. Probable normal myocardial perfusion study but with reduced sensitivity because of marginal image quality. 2. While there are multiple areas of mild reversible defects on the post- stress supine images, the suboptimal image quality makes this non-specific. The prone images show no perfusion defects, suggesting that the defects are likely due to attenuation artifact. The resting images show some reversibility but given the normal prone images, the reversibility is nonspecific. 3. Normal left ventricular systolic function without focal wall motion abnormality although with mildly increased left ventricular volumes. 4. Good exercise capacity without angina or ECG evidence of ischemia suggesting a low risk study. He had occasional PACs and a significant hypertensive blood pressure response to exercise. Neeraj Rodrigues - MERNA/raul/alfred doc#: [id number]/job#: [id number] dd: 01/23/2020 17:12:00 dt: 01/24/2020 03:25:00 DICTATING /COPIES TO: Akshat Pierre MD; Manuel Quiroga MD COPIES MNE: TEGAN;
== END ==
PROVIDERS: PCP Family Medicine; Referring Provider Family Medicine; Visit Provider Family Medicine
DX: R07.89 Other chest pain (principal)
CPT/HCPCS: 78452; 93016; 93017; 93018; A9502

== ENCOUNTER → 2020-01-27 09:07 | Outpatient (CLI) | payer OTHER, SELFPAY ==
[2020-01-27 12:01] LABS: Cholesterol 155 mg/dL (140-199); HDL Cholesterol 52 mg/dL (40-60); LDL Cholesterol Calculated 89 mg/dL (<100); Triglycerides 69 mg/dL (35-150)
[2020-01-27 12:32] LABS: Thyroid Stimulating Hormone 1.27 uIU/mL (0.47-4.68)
== END ==
PROVIDERS: PCP Family Medicine; Referring Provider Family Medicine; Visit Provider Family Medicine
DX: E78.2 Mixed hyperlipidemia (principal); E03.9 Hypothyroidism, unspecified
CPT/HCPCS: 36415; 80061; 84443

== ENCOUNTER → 2020-01-28 06:54 | Outpatient (CLI) | payer OTHER, SELFPAY ==
--- NOTE | 2020-01-28 06:55 | DI.ECHO.S_ITS ---
[facility]---------+ [facility] +---------+ : : [address] : : : : [id number] : : : : Phone: [phone]+ Echocardiogram Report + + :Name: VITOR AMARO Study Date: 01/28/2020 Height: 71 in : :[facility] Weight: 180 lb : : Gender: Male BSA: 2.0 m2 : :: 1955 Age: 64 yrs BP: 139/85 mmHg: :Reason For Study: Chest pain : :Ordering Physician: Dr. Jackson : :Junaid Performed By: Krysten Angelo : :Referring: MANDY PARNELL : + + Interpretation Summary The left ventricle is normal in size and wall thickness. The ejection fraction is estimated to be 60-65%. The right ventricle is mildly dilated. The right ventricular systolic function is normal. There is mild tricuspid regurgitation. The right ventricular systolic pressure is estimated to be at least 27 mmHg based on an estimated right atrial pressure of 3 mm Hg. The IVC is of normal diameter and collapses greater than 50% with a sniff. This suggests a low right atrial pressure of 3 mm Hg. Procedure: A two-dimensional transthoracic echocardiogram with color flow and Doppler was performed. The study quality was technically adequate. The patient had occasional PVCs during the exam. The patient was in sinus bradycardia with heart rates between 49-53 bpm during the exam. Left Ventricle: The left ventricle is normal in size and wall thickness. There is no thrombus. The ejection fraction is estimated to be 60-65%. Left ventricular global longitudinal strain average is 20.7%. There are no focal wall motion abnormalities. MV E/A: 1.2 Med Peak E' Nate: 6.3 cm/sec E/E' med: 11.6. Right Ventricle: The right ventricle is mildly dilated. The right ventricular systolic function is normal. Atria: The left atrium is mildly dilated. Right atrial size is normal. There is no Doppler evidence for an interatrial shunt. Mitral Valve: The mitral valve leaflets are slightly calcified. There is systolic anterior motion of the chordal apparatus. There is no mitral valve stenosis. There is no mitral regurgitation noted. Aortic Valve: The aortic valve is trileaflet. The aortic valve opens well. There is no aortic valve stenosis. No aortic regurgitation is present. Tricuspid Valve: The tricuspid valve is normal in structure and function. The right ventricular systolic pressure is estimated to be at least 27 mmHg based on an estimated right atrial pressure of 3 mm Hg. There is mild tricuspid regurgitation. Pulmonic Valve: The pulmonic valve is not well seen, but is grossly normal. There is no pulmonic valvular regurgitation. Great Vessels: The aortic root is normal size. The ascending aorta is at the upper limits of normal in size. The IVC is of normal diameter and collapses greater than 50% with a sniff. This suggests a low right atrial pressure of 3 mm Hg. Pericardium/ Pleura There is no pericardial effusion. There is no pleural effusion. MMode/2D Measurements & Calculations LVIDd: 4.8 cm LVOT diam: 2.4 cm LVIDs: 3.1 cm Ao root diam: 3.4 cm FS: 35.6 % asc Aorta Diam: 3.4 cm EPSS: 0.64 cm Ao Arch Diam (Prox Trans): 2.9 cm IVSd: 0.92 cm LVPWd: 0.94 cm LV sadler. diameter/BSA (cm/m^2): 2.4 LV sys. diameter/BSA (cm/m^2): 1.5 LA A2 area: 24.9 cm2 RA long axis: 5.6 cm LA A4 area: 18.2 cm2 RA area: 16.7 cm2 LA length (vol): 4.6 cm RA vol: 42.7 ml LA vol: 83.0 ml RA : 21.2 ml/m2 LA vol index: 41.2 ml/m2 IVC diam: 1.8 cm RVD1 (basal): 4.2 cm TAPSE: 2.2 cm Doppler Measurements & Calculations Ao V2 max: 98.3 cm/sec LVOT Max Nate: 86.8 cm/sec Ao V2 mean: 67.6 cm/sec LV V1 max P.0 mmHg Ao max P.9 mmHg LV V1 VTI: 22.2 cm Ao mean P.0 mmHg CUONG(I,D): 4.4 cm2 Ao V2 VTI: 23.4 cm CUONG(V,D): 4.1 cm2 sev ratio: 0.95 CUONG indexed to BSA (cm^2/m^2): 2.2 MV E max nate: 73.0 cm/sec TR max nate: 249.1 cm/sec MV A max nate: 61.2 cm/sec TR max P.8 mmHg MV E/A: 1.2 PA V2 max: 71.1 cm/sec Med Peak E' Nate: 6.3 cm/sec PA V2 mean: 48.2 cm/sec E/E' med: 11.6 PA mean P.1 mmHg Lat Peak E' Nate: 11.3 cm/sec PA pr(Accel): 34.5 mmHg E/E' lat: 6.5 E/e' average: 9.0 MV dec time: 0.22 sec SV(LVOT): 103.9 ml Reading Physician:03:10 PM
== END ==
PROVIDERS: PCP Family Medicine; Referring Provider Family Medicine; Visit Provider Family Medicine
DX: I07.1 Rheumatic tricuspid insufficiency (principal); R07.9 Chest pain, unspecified
CPT/HCPCS: 93306

== ENCOUNTER 2020-09-12 18:40 | Emergency (ER) | payer OTHER, SELFPAY ==
[2020-09-12 18:40] VITALS: BP 188/92; PULSE 67; RESP 16; TEMP 37.2; O2SAT 99; BMI 26.7
--- NOTE | 2020-09-12 18:53 | DI.CT.S_ITS ---
PROCEDURE: CT ABDOMEN PELVIS W CON INDICATIONS: severe lower abdominal pain, nausea TECHNIQUE: After the administration of intravenous contrast, 5 mm thick sections acquired from the diaphragm to the symphysis. 5 mm coronal and sagittal reformats were acquired. For radiation dose reduction, the following was used: automated exposure control, adjustment of mA and/or kV according to patient size. COMPARISON: [facility], CT, ABDOMEN/PELVIS WITH CONTRAST, 08/02/2011, 15:29. FINDINGS: Image quality: Excellent. ABDOMEN: Lung bases: Lung bases are clear. Heart size is normal. Solid organs: There is an oval hypodense lesion redemonstrated within segment 8 of the right hepatic lobe with nodular peripheral enhancement consistent with a cavernous hemangioma. The gallbladder appears within normal limits without calcified gallstones. Biliary system is non-dilated. Pancreas enhances normally. No peripancreatic fat stranding or fluid collections. No pancreatic duct dilatation. The spleen is normal in size. No adrenal nodules. Kidneys demonstrate no hydronephrosis. Peritoneum and bowel: Small bowel loops demonstrate normal wall thickness and caliber. The appendix is normal in appearance. There is colonic diverticulosis with associated diverticular and colonic wall thickening as well as inflammatory fat stranding in the proximal sigmoid colon consistent with acute diverticulitis. There is minimal associated free fluid. No diverticular abscess or macroscopic free air. Nodes and vessels: No retroperitoneal or mesenteric adenopathy by size criteria. Aorta and inferior vena cava are normal in size. Miscellaneous: No ventral hernias. PELVIS: Genitourinary: The urinary bladder is partially distended. There is mild heterogeneous enlargement of the prostate. Miscellaneous: No inguinal hernias or adenopathy. Bones: No suspicious bony lesions. No vertebral body compression fractures. IMPRESSION: 1. Acute diverticulitis of the sigmoid colon without evidence of diverticular abscess or macroscopic free air. 2. Stable hemangioma within the right hepatic lobe. Dictated by: Nikolai Steward M.D. on 09/12/2020 at 20:31 Approved by: Nikolai Steward M.D. on 09/12/2020 at 20:33
--- NOTE | 2020-09-12 19:03 | ED.ABDPAIN ---
HPI - Abdominal Pain General Chief Complaint: Abdominal Pain Stated Complaint: abdominal pain x3 days Time Seen by Provider: 09/12/20 18:41 Source: patient Mode of arrival: Ambulatory Limitations: no limitations History of Present Illness HPI narrative: 64M nonsmoker with history of hyperlipidemia and prior hernia surgery presents with his in the chief complaint of 3 days of lower abdominal pain. He states that evening he had a relatively sudden onset right lower quadrant pain that was crampy and intense. He states that it has slowly radiated over to include much of his lower abdomen. It is worse when he moves and improves with rest. He has had episodes where he is unable to stand upright due to the intense pain. He denies any change in appetite, nausea or vomiting. He has had no fever or chills. He denies any change in bowel habits such as constipation or diarrhea. He denies any dysuria, frequency or urgency. He has been NPO since about 2:00 p.m. and states his last colonoscopy was 13 years ago MD complaint: abdominal pain Onset (ago): day(s) Pain Consistency: intermittent Location: RLQ Severity: severe Quality: cramping and aching Radiation: none Migration to: suprapubic Relieving factors: rest Exacerbating factors: movement Associated symptoms: denies other symptoms Related Data Home Medications Medication Instructions Recorded Confirmed multivitamin 1 cap PO EVERY DAY #0 06/20/10 05/25/20 cetirizine [Zyrtec] 1 tab PO DAILY PRN 01/24/18 05/25/20 Previous Rx's Medication Instructions Recorded atorvastatin 10 mg tablet 10 mg PO HS #90 tab 03/08/20 levothyroxine 100 mcg tablet 100 mcg PO DAILY #90 tab 03/08/20 amoxicillin-pot clavulanate 1 tab PO BID #20 tab 09/12/20 [Augmentin] Allergies Allergy/AdvReac Type Severity Reaction Status Date / Time chlorhexidine [CHLORHEXIDINE] Allergy Mild RASH/HIBICL Verified 05/25/20 15:23 ENS Review of Systems Constitutional Constitutional: Denies chills, Denies fatigue, Denies fever(s), Denies frequent falls, Denies lethargy and Denies weakness Eyes Eyes: Denies change in vision, Denies eye discharge, Denies irritation and Denies loss of vision ENT Ears, Nose, Mouth, and Throat: Denies change in voice, Denies dizziness, Denies neck pain, Denies sore throat and Denies throat swelling Cardiovascular Cardiovascular: Denies chest pain, Denies irregular heart rhythm, Denies lightheadedness, Denies palpitations, Denies dyspnea, Denies dyspnea on exertion and Denies orthopnea Respiratory Respiratory: Denies cough, Denies dyspnea, Denies dyspnea on exertion and Denies wheezing Gastrointestinal Gastrointestinal: Reports abdominal pain, Denies change in bowel habits, Denies diarrhea, Denies nausea and Denies vomiting Musculoskeletal Musculoskeletal: Denies neck pain and Denies numbness Integumentary/Breasts Skin/Breast: Denies pruritus, Denies erythema, Denies rash and Denies wounds Neurologic Neurologic: Denies behavioral changes, Denies confusion, Denies dizziness, Denies frequent falls, Denies loss of vision, Denies numbness and Denies weakness Psychiatric Psychiatric: Denies anxiety, Denies behavioral changes, Denies confusion, Denies depression, Denies homicidal ideation and Denies suicidal ideation Endocrine Endocrine: Denies fatigue, Denies flushing and Denies palpitations Hematologic/Lymphatic Hematologic/Lymphatic: Denies easy bruising Allergic/Immunologic Allergic/Immunologic: Denies urticaria, Denies throat swelling and Denies wheezing Patient History Medical History (Updated 09/12/20 @ 20:44 by Derrick Lindsey DO) Chicken pox (~1959) Hearing deficit History of DVT (deep vein thrombosis) (~2010) Hyperlipidemia Hypothyroidism (~2014) Measles (~1959) Mumps (~1959) Tinnitus (~2009) Surgical History Anesthesia History of knee surgery (~1981) History of tonsillectomy Status post hernia repair (~2010) Family History Father Multiple myeloma Heart attack Cancer Heart disease Grandfather No problems noted. Grandfather No problems noted. Mother No problems noted. Social History Smoking Status: Never smoker Smoking Status: Never smoker alcohol intake frequency: a few times a week Substance Use Type: does not use Exam Narrative Exam Narrative: GENERAL: [64] year old patient appears stated age. Well-nourished, well-developed patient, in mild distress. HEAD: Atraumatic. Normocephalic. EYES: Pupils equal round and reactive. Extraocular motions intact. No scleral icterus. No injection or drainage. ENT: Nose without bleeding, purulent drainage. Throat without erythema, tonsillar hypertrophy or exudate. Airway patent. NECK: Trachea midline. Non tender CARDIOVASCULAR: Regular rate and rhythm without murmurs, gallops, or rubs. RESPIRATORY: Clear to auscultation. Breath sounds equal bilaterally. No wheezes, rales, or rhonchi. GASTROINTESTINAL: Abdomen soft, tender in the left lower quadrant and suprapubic region, negative pain at McBurney's, bowel sounds present in all 4 quadrants, no rebound, nondistended. EXTREMITIES: No edema or joint tenderness. BACK: Nontender without deformity or crepitance. No flank tenderness. NEURO: AOx3. SKIN: No rash or erythema of visible areas Initial Vital Signs Initial Vital Signs: Vital Signs Temperature 98.9 F 09/12/20 18:40 Pulse Rate 67 09/12/20 18:40 Respiratory Rate 16 09/12/20 18:40 Blood Pressure 188/92 H 09/12/20 18:40 Pulse Oximetry 99 09/12/20 18:40 Course Orders Ordered: ED Orders 09/12/20 18:53 CT abdomen pelvis w con Stat 09/12/20 18:58 Complete Blood Count AUTO DIFF Stat Comprehensive Metabolic Panel Stat Lipase Stat Partial Thromboplastin Time Stat Prothrombin Time INR Stat Sodium Chloride (Normal Saline 0.9%) 1,000 mls @ 150 mls/hr IV CONT FANNY Last Admin: 09/12/20 19:23 Dose: 150 mls/hr Documented by: WILLA Discontinued Medications Amoxicillin/Clavulanate Potassium (Amoxicillin/Clav 875/125 Mg) 1 tab PO NOW ONE Stop: 09/12/20 20:42 Last Admin: 09/12/20 20:48 Dose: 1 tab Documented by: WILLA Vital Signs Vital signs: Vital Signs - 8 hr 09/12/20 18:40 09/12/20 19:17 09/12/20 20:00 Temperature 98.9 F Pulse Rate 67 60 61 Respiratory Rate 16 16 Blood Pressure 188/92 H 144/73 H Pulse Oximetry 99 98 99 09/12/20 20:30 09/12/20 20:36 09/12/20 20:37 Temperature Pulse Rate 68 70 Respiratory Rate Blood Pressure 150/77 H Pulse Oximetry 98 99 MDM - Abdominal Pain Lab Data Result diagrams: 09/12/20 18:58 09/12/20 18:58 Labs: Lab Results 09/12/20 09/12/20 09/12/20 Range/Units 18:58 18:58 18:58 WBC 11.7 H (4.5-11.0) X10^3/uL RBC 4.75 (4.5-5.9) X10^6/uL Hgb 14.8 (13.5-17.5) g/dL Hct 44.4 (41-53) % MCV 93.5 (80-100) fL MCH 31.2 (26-34) PG MCHC 33.3 (30-36) % RDW 12.9 (11.6-14.8) % Plt Count 151 (150-400) X10^3/uL Neut % (Auto) 74.4 (50-75) % Lymph % (Auto) 16.1 L (25-40) % Bristol % (Auto) 8.1 (3-14) % Eos % (Auto) 1.0 L (2-4) % Baso % (Auto) 0.4 (0-2) % Neut # (Auto) 8700 H (9513-1723) /uL Lymph # (Auto) 1900 (6878-8837) /uL Bristol # (Auto) 1000 H (0-900) /uL Eos # (Auto) 100 (0-450) /uL Baso # (Auto) 100 (0-100) /uL PT 11.8 (10.1-12.7) SECONDS INR 1.0 (0.9-1.3) APTT 31 (26.4-36.2) SECONDS Sodium 138 (137-145) mmol/L Potassium 3.8 (3.4-5.1) mmol/L Chloride 104 (98-107) mmol/L Carbon Dioxide 28 (22-32) mmol/L BUN 19 (9-20) mg/dL Creatinine 1.09 (0.66-1.25) mg/dL Estimated GFR > 60.0 (>60) mL/min BUN/Creatinine Ratio 17.4 (6-22) Glucose 109 (80-110) mg/dL Calcium 9.6 (8.4-10.2) mg/dL Total Bilirubin 0.7 (0.2-1.3) mg/dL AST 31 (17-59) IU/L ALT 22 (<50) IU/L Alkaline Phosphatase 73 (38-126) U/L Total Protein 7.3 (6.3-8.2) g/dL Albumin 4.2 (3.5-5.0) g/dL Globulin 3.1 (1.7-4.1) g/dL Albumin/Globulin Ratio 1.4 (1.0-2.8) Lipase 70 (23-300) U/L Point of care testing: Urine Dip Bedside Urine Glucose Negative Bedside Urine Bilirubin - Negative Bedside Urine Ketone - Negative Urine Specific Joshua 1.030 Bedside Urine Occult Blood - Negative Bedside Urine pH 6 Bedside Urine Protein +/- 15 Bedside Urine Urobilinogen - Negative Bedside Urine Nitrite - Negative Bedside Urine Leukocytes - Negative Esterase Imaging Data CT scan - abdomen/pelvis: Radiologist's Impression: Chart Viewer Diagnostics DATE TYPE STATUS REF RANGE/AUTHOR Hx Today 18:53 Nikolai Steward 01/28/20 06:55 Orville Ybarra 01/24/20 03:50 Akshat Pierre 01/24/20 03:50 Akshat Pierre 01/12/20 11:26 Jarek Ruvalcaba 01/24/18 12:14 Israel Murphy David G 64, M1955 [facility] ER, Main ED R06 180.34cm 87.09kg BMI: 26.8kg/m? Abdominal Pain Search Chart No Data to Display RASH/HIBICLENS ONSET 12/08/13 03/03/15 Today 20:37 Neeraj Rodrigues M [address] [id number] Scan ReportSigned Patient: RaviNeeraj GMR#: [id number]: 5Acct:[id number]/Sex: 64 / MDate of Service: 09/12/20Loc: EDAccession Number: [id number] Procedure: CT abdomen pelvis w con Ordering Provider: Derrick Lindsey D.O. PROCEDURE: CT ABDOMEN PELVIS W CON INDICATIONS: severe lower abdominal pain, nausea TECHNIQUE: After the administration of intravenous contrast, 5 mm thick sections acquired from the diaphragm to the symphysis. 5 mm coronal and sagittal reformats were acquired. For radiation dose reduction, the following was used: automated exposure control, adjustment of mA and/or kV according to patient size. COMPARISON: [facility], CT, ABDOMEN/PELVIS WITH CONTRAST, 08/02/2011, 15:29. FINDINGS: Image quality: Excellent. ABDOMEN: Lung bases: Lung bases are clear. Heart size is normal. Solid organs: There is an oval hypodense lesion redemonstrated within segment 8 of the right hepatic lobe with nodular peripheral enhancement consistent with a cavernous hemangioma. The gallbladder appears within normal limits without calcified gallstones. Biliary system is non-dilated. Pancreas enhances normally. No peripancreatic fat stranding or fluid collections. No pancreatic duct dilatation. The spleen is normal in size. No adrenal nodules. Kidneys demonstrate no hydronephrosis. Peritoneum and bowel: Small bowel loops demonstrate normal wall thickness and caliber. The appendix is normal in appearance. There is colonic diverticulosis with associated diverticular and colonic wall thickening as well as inflammatory fat stranding in the proximal sigmoid colon consistent with acute diverticulitis. There is minimal associated free fluid. No diverticular abscess or macroscopic free air. Nodes and vessels: No retroperitoneal or mesenteric adenopathy by size criteria. Aorta and inferior vena cava are normal in size. Miscellaneous: No ventral hernias. PELVIS: Genitourinary: The urinary bladder is partially distended. There is mild heterogeneous enlargement of the prostate. Miscellaneous: No inguinal hernias or adenopathy. Bones: No suspicious bony lesions. No vertebral body compression fractures. IMPRESSION: 1. Acute diverticulitis of the sigmoid colon without evidence of diverticular abscess or macroscopic free air. 2. Stable hemangioma within the right hepatic lobe. Dictated by: Nikolai Steward M.D. on 09/12/2020 at 20:31 Approved by: Nikolai Steward M.D. on 09/12/2020 at 20:33 MDM Narrative Medical decision making narrative: Patient with lower abdominal pain over the past few days and a mild elevation white blood cell count. No change in appetite, no vomiting. Patient not septic, soft belly. CT shows mild case of diverticulitis without abscess or perforation. Appendicitis, kidney stone and other diagnoses considered but unlikely given result of imaging. Patient tolerating orals, has minimal pain and very appropriate for outpatient at this point in time Return precautions given and questions answered to the apparent satisfaction of the patient. Discharge Plan Departure Patient Disposition: Home Clinical Impression: Diverticulitis Instructions: DI for Diverticulitis Activity Restrictions/Additional Instructions: *You have been diagnosed with [lower abdominal pain due to diverticulitis. Your very reassuring blood work and CT scan demonstrates no abscess or perforation] *What to do: *Take medications as directed: Prescription sent to [facility] * please follow-up with your primary care provider, call tomorrow morning to arrange for follow-up and let them know your emergency department. Also, please let your GI doctor's office know that you are here, it sounds like it is likely Dr. Garcia and I will fax a note to him tonight *Return to ER if you should have any new, worsening or concerning symptoms, such as [worsening pain, persistent vomiting, fever greater than 101 F shaking chills or other bothersome symptoms] Please consider a clear liquid diet for the next 24-48 hours and then advance, 1st with a bland diet and then as your body tolerates Prescriptions: New amoxicillin-pot clavulanate [Augmentin] 875-125 mg tablet 1 tab PO BID Qty: 20 RF: 0 No Action multivitamin Capsule 1 cap PO EVERY DAY Qty: 0 RF: 0 atorvastatin [Lipitor] 10 mg tablet 10 mg PO HS Qty: 90 RF: 3 levothyroxine 100 mcg tablet 100 mcg PO DAILY Qty: 90 RF: 3 cetirizine [Zyrtec] 10 mg Tablet 1 tab PO DAILY PRN (Reason: Allergy Symptoms) RF: 0 Referrals: Neeraj Garcia MD [Non-Staff] - Luciano Anne DO [Primary Care Provider] -
[2020-09-12 19:12] LABS: Add Manual Diff / Slide Review NO; Basophils Absolute Auto 100 /uL (0-100); Basophils Percent Auto 0.4 % (0-2); Eosinophils Absolute Auto 100 /uL (0-450); Hematocrit 44.4 % (41-53); Hemoglobin 14.8 g/dL (13.5-17.5); Lymphocytes Absolute Auto 1900 /uL (1100-4500); Lymphocytes Percent Auto 16.1 % (25-40); Mean Corpuscular HGB Conc 33.3 % (30-36); Mean Corpuscular Hemoglobin 31.2 PG (26-34); Mean Corpuscular Volume 93.5 fL (80-100); Monocytes Absolute Auto 1000 /uL (0-900); Monocytes Percent Auto 8.1 % (3-14); Neutrophils Absolute Auto 8700 /uL (1500-7000); Neutrophils Percent Auto 74.4 % (50-75); Platelet Count 151 X10^3/uL (150-400); Red Blood Cell Count 4.75 X10^6/uL (4.5-5.9); Red Cell Distribution Width 12.9 % (11.6-14.8); White Blood Cell Count 11.7 X10^3/uL (4.5-11.0)
[2020-09-12 19:17] VITALS: BP 144/73; PULSE 60; RESP 16; O2SAT 98
[2020-09-12 19:18] LABS: Prothrombin Time 11.8 SECONDS (10.1-12.7)
[2020-09-12 19:21] LABS: PTT Partial Thromboplastin Tim 31 SECONDS (26.4-36.2)
[2020-09-12 19:22] LABS: Alanine Aminotransferase 22 IU/L (<50); Albumin 4.2 g/dL (3.5-5.0); Albumin Globulin Ratio 1.4 (1.0-2.8); Alkaline Phosphatase 73 U/L (38-126); Aspartate Aminotransferase 31 IU/L (17-59); BUN Creatinine Ratio 17.4 (6-22); Bilirubin Total 0.7 mg/dL (0.2-1.3); Blood Urea Nitrogen 19 mg/dL (9-20); Calcium 9.6 mg/dL (8.4-10.2); Carbon Dioxide 28 mmol/L (22-32); Chloride 104 mmol/L (98-107); Estimated Glomerular Filt Rate > 60.0 mL/min (>60); Globulin 3.1 g/dL (1.7-4.1); Glucose 109 mg/dL (80-110); HEMOLYSIS 15 (0-50); Lipase 70 U/L (23-300); Potassium 3.8 mmol/L (3.4-5.1); Sodium 138 mmol/L (137-145); Total Protein 7.3 g/dL (6.3-8.2)
[2020-09-12] MEDS: SODIUM CHLORIDE 0.9% 1,000 ML 150 ML IV (19:23)
[2020-09-12 20:00] VITALS: PULSE 61; O2SAT 99
[2020-09-12 20:30] VITALS: PULSE 68; O2SAT 98
[2020-09-12 20:36] VITALS: PULSE 70; O2SAT 99
[2020-09-12 20:37] VITALS: BP 150/77
[2020-09-12] MEDS: AMOXICILLIN/CLAV 875/125 MG 1 TAB PO (20:48)
== END 2020-09-12 21:06 | disposition home or self-care (01) ==
PROVIDERS: Emergency Provider Emergency Medicine; PCP Family Medicine
DX: K57.32 Diverticulitis of large intestine without perforation or abscess without bleeding (principal)
CPT/HCPCS: 36415; 74177; 80053; 81003; 83690; 85025; 85610; 85730; 96360; 96361; 99284; Q9967

== ENCOUNTER → 2021-01-25 09:32 | Outpatient (CLI) | payer OTHER, SELFPAY ==
[2021-01-25 10:44] LABS: BUN Creatinine Ratio 13.7 (6-22); Blood Urea Nitrogen 14 mg/dL (9-20); Calcium 9.2 mg/dL (8.4-10.2); Carbon Dioxide 27 mmol/L (22-32); Chloride 106 mmol/L (98-107); Estimated Glomerular Filt Rate > 60.0 mL/min (>60); Glucose 143 mg/dL (80-110); HEMOLYSIS < 15 (0-50); Potassium 4.2 mmol/L (3.4-5.1); Sodium 138 mmol/L (137-145)
== END ==
PROVIDERS: PCP Family Medicine; Referring Provider Physician Assistant; Visit Provider Physician Assistant
DX: Z01.812 Encounter for preprocedural laboratory examination (principal)
CPT/HCPCS: 36415; 80048

== ENCOUNTER → 2021-07-18 08:22 | Outpatient (CLI) | payer MEDICARE, OTHER, SELFPAY ==
[2021-07-18 09:18] LABS: Add Manual Diff / Slide Review NO; Basophils Absolute Auto 0 /uL (0-100); Basophils Percent Auto 0.4 % (0-2); Eosinophils Absolute Auto 100 /uL (0-450); Eosinophils Percent Auto 2.5 % (2-4); Hematocrit 43.5 % (41-53); Hemoglobin 14.7 g/dL (13.5-17.5); Lymphocytes Absolute Auto 2000 /uL (1100-4500); Lymphocytes Percent Auto 33.6 % (25-40); Mean Corpuscular HGB Conc 33.8 % (30-36); Mean Corpuscular Hemoglobin 31.5 PG (26-34); Mean Corpuscular Volume 93.2 fL (80-100); Monocytes Absolute Auto 500 /uL (0-900); Monocytes Percent Auto 8.3 % (3-14); Neutrophils Absolute Auto 3200 /uL (1500-7000); Neutrophils Percent Auto 55.2 % (50-75); Platelet Count 166 X10^3/uL (150-400); Red Blood Cell Count 4.67 X10^6/uL (4.5-5.9); White Blood Cell Count 5.8 X10^3/uL (4.5-11.0)
[2021-07-18 09:48] LABS: Alanine Aminotransferase 19 IU/L (<50); Albumin Globulin Ratio 1.6 (1.0-2.8); Alkaline Phosphatase 50 U/L (38-126); Aspartate Aminotransferase 27 IU/L (17-59); BUN Creatinine Ratio 14.7 (6-22); Bilirubin Total 1.1 mg/dL (0.2-1.3); Blood Urea Nitrogen 16 mg/dL (9-20); Calcium 9.7 mg/dL (8.4-10.2); Carbon Dioxide 30 mmol/L (22-32); Chloride 105 mmol/L (98-107); Cholesterol 195 mg/dL (140-199); Estimated Glomerular Filt Rate > 60.0 mL/min (>60); Globulin 2.5 g/dL (1.7-4.1); Glucose 102 mg/dL (80-110); HDL Cholesterol 53 mg/dL (40-60); HEMOLYSIS < 15 (0-50); LDL Cholesterol Calculated 112 mg/dL (<100); Potassium 4.5 mmol/L (3.4-5.1); Sodium 138 mmol/L (137-145); Total Protein 6.5 g/dL (6.3-8.2); Triglycerides 149 mg/dL (35-150)
[2021-07-18 09:57] LABS: Free T3, Triiodothyronine Free 3.82 pg/mL (2.77-5.27); Free T4, Direct Thyroxine 1.13 ng/dL (0.78-2.19)
[2021-07-18 10:11] LABS: Thyroid Stimulating Hormone 4.11 uIU/mL (0.47-4.68)
[2021-07-18 10:18] LABS: Prostate Specific Antigen Scrn 5.48 ng/mL (0.1-4.0)
== END ==
PROVIDERS: PCP Family Medicine; Referring Provider Family Medicine; Visit Provider Family Medicine
DX: E03.9 Hypothyroidism, unspecified (principal); E78.2 Mixed hyperlipidemia; Z12.5 Encounter for screening for malignant neoplasm of prostate
CPT/HCPCS: 36415; 80053; 80061; 84439; 84443; 84481; 85025; G0103

== ENCOUNTER → 2021-09-08 10:22 | Outpatient (CLI) | payer MEDICARE, OTHER, SELFPAY ==
[2021-09-08 13:25] LABS: Prostate Specific Antigen 5.49 ng/mL (0.10-4.00)
== END ==
PROVIDERS: PCP Family Medicine; Referring Provider Family Medicine; Visit Provider Family Medicine
DX: R97.20 Elevated prostate specific antigen [PSA] (principal)
CPT/HCPCS: 36415; 84153

== ENCOUNTER 2022-04-21 18:00 | Emergency (ER) | payer MEDICARE, OTHER, SELFPAY ==
[2022-04-21 18:06] VITALS: BP 138/87; PULSE 72; RESP 16; TEMP 36.8; O2SAT 98; BMI 26.0
--- NOTE | 2022-04-21 18:15 | DI.CT.S_ITS ---
PROCEDURE: CT HEAD/BRAIN WO CON INDICATIONS: direct blow TECHNIQUE: Noncontrast 4.5 mm thick angled axial sections acquired from the foramen magnum to the vertex, with coronal and sagittal reformats. For radiation dose reduction, the following was used: automated exposure control, adjustment of mA and/or kV according to patient size. COMPARISON: None. FINDINGS: Image quality: Excellent. CSF spaces: Basal cisterns are patent. No extra-axial fluid collections. Ventricles are normal in size and shape. Brain: No midline shift. No intracranial masses or hemorrhage. Rodriguez-white matter interface is normal. Skull and face: Calvarium and visualized facial bones are intact, without suspicious lesions. Sinuses: Visualized sinuses and mastoids are clear. IMPRESSION: No acute intracranial abnormality. Dictated by: Aris Mehta M.D. on 04/21/2022 at 18:45 Approved by: Aris Mehta M.D. on 04/21/2022 at 18:47
--- NOTE | 2022-04-21 18:15 | DI.CT.S_ITS ---
PROCEDURE: CT CERVICAL SPINE WO CON INDICATIONS: direct blow TECHNIQUE: Noncontrast 3 mm thick sections acquired from the skull base to the T4 level. Sagittal and coronal reformats were then constructed. For radiation dose reduction, the following was used: automated exposure control, adjustment of mA and/or kV according to patient size. COMPARISON: None. FINDINGS: Image quality: Excellent. Bones: No fractures or dislocations. Visualized superior ribs are intact. There is leftward curvature cervicothoracic spine the apex on the left C7 a Bell angle of 11?. Soft tissues: Prevertebral soft tissues are normal in thickness. No paravertebral hematomas. No apical pneumothoraces. IMPRESSION: No acute traumatic abnormality of the cervical spine Dictated by: Aris Mehta M.D. on 04/21/2022 at 18:48 Approved by: Aris Mehta M.D. on 04/21/2022 at 18:50
[2022-04-21 19:19] VITALS: BP 131/84; PULSE 65; RESP 17; O2SAT 96
--- NOTE | 2022-04-21 19:55 | DI.RAD.S_ITS ---
PROCEDURE: XR PELVIS 1-2V INDICATIONS: fall/rt side pain TECHNIQUE: 2 views of the pelvis acquired. COMPARISON: None. FINDINGS: Bones: No fractures or dislocations. No suspicious bony lesions. Soft tissues: Visualized bowel gas pattern is normal. No suspicious soft tissue calcifications. IMPRESSION: 1. No fracture or dislocation. Dictated by: Nikolai Steward M.D. on 04/21/2022 at 21:38 Approved by: Nikolai Steward M.D. on 04/21/2022 at 21:38
--- NOTE | 2022-04-21 19:56 | ED.FALL ---
HPI - Fall General Chief Complaint: Trauma Stated Complaint: Fall from step ladder, Hit head Time Seen by Provider: 04/21/22 19:46 Source: patient Mode of arrival: Ambulatory History of Present Illness HPI Narrative: Patient brought in by his . Had a fall off the step ladder in his garage at 5:00 p.m. tonight. Was trying to set up [employer] lights. Lost his balance and fell backwards. Favoring to the right side. He did hit his head. Unsure with loss of consciousness but it he was dazed he states but remembers what happened. No nausea vision changes confusion. No numbness tingling or weakness. Patient is not on any blood thinners. Patient complains of right posterior upper pelvis pain. No neck pain spine pain. Tetanus needs to be updated. Has not taken anything for pain. Patient in no distress. Patient placed in hard collar on arrival. Related Data Home Medications Medication Instructions Recorded Confirmed multivitamin 1 cap PO EVERY DAY ##0 06/20/10 07/28/21 cetirizine 10 mg tablet (Zyrtec) 1 tab PO DAILY PRN Allergy Symptoms 01/24/18 07/28/21 Previous Rx's Medication Instructions Recorded levothyroxine 100 mcg tablet 100 mcg PO DAILY #90 tabs 10/03/21 atorvastatin 10 mg tablet (Lipitor) 10 mg PO HS #90 tabs 10/05/21 Allergies Allergy/AdvReac Type Severity Reaction Status Date / Time chlorhexidine [CHLORHEXIDINE] Allergy Mild RASH/HIBICL Verified 07/28/21 15:24 ENS Review of Systems Review of Systems Narrative: GENERAL: Denies chills, fatigue, malaise, fever, sweats. HEENT: Denies sinus pain, ear pain, sore throat RESPIRATORY: Denies dyspnea, cough CARDIOVASCULAR: Denies chest pain, palpitations GASTROINTESTINAL: Denies nausea, vomiting, abdominal pain : Denies dysuria, frequency, hematuria MUSCULOSKELETAL: Positive muscle or bony pain SKIN: Denies rash, skin lesions, positive skin injury NEUROLOGIC: Denies weakness, numbness ROS Unobtainable: All systems reviewed & are unremarkable except as noted in HPI and below Patient History Medical History Chicken pox (~1959) Diverticulitis Elevated PSA Hearing deficit History of DVT (deep vein thrombosis) (~2010) Hyperlipidemia Hypothyroidism (~2014) Low back pain Measles (~1959) Mumps (~1959) Pelvic somatic dysfunction Short leg syndrome, left, acquired Tinnitus (~2009) Surgical History Anesthesia History of knee surgery (~1981) History of tonsillectomy Status post hernia repair (~2010) Family History Father Multiple myeloma Heart attack Cancer Heart disease Grandfather No problems noted. Grandfather No problems noted. Mother No problems noted. Social History Smoking Status: Never smoker Smoking Status: Never smoker alcohol intake frequency: a few times a week Substance Use Type: does not use Exam Narrative Exam Narrative: GENERAL: in no distress, not toxic not dyspneic HEAD: Normocephalic. There is abrasion at the top of the scalp. 2 cm diameter. Mildly tender but no crepitus or step-off. EYES: Pupils equal round No scleral icterus. ENT: Mucous membranes moist. NECK: Trachea midline. No midline tenderness or step-off of the cervicothoracic or lumbar spine. No skin injury seen on the back no bruising ecchymosis. CARDIOVASCULAR: Regular rate and rhythm without murmurs RESPIRATORY: Clear to auscultation. Breath sounds equal bilaterally. No wheezes, rales, or rhonchi. GASTROINTESTINAL: Abdomen soft, non-tender EXTREMITIES: No gross deformities. Pants were pulled down. There is tenderness to the right superior gluteus region. No skin bruising or injury ecchymosis seen. Nontender bilateral shoulders elbows wrists hips knees and ankles. Patient able to stand but has slight antalgic gait due to the right superior gluteal pain. BACK: No flank tenderness. NEURO: AOx4. SKIN: Warm and dry PSYCH: Not anxious, is cooperative Initial Vital Signs Initial Vital Signs: Vital Signs Temperature 98.2 F 04/21/22 18:06 Pulse Rate 72 04/21/22 18:06 Respiratory Rate 16 04/21/22 18:06 Blood Pressure 138/87 04/21/22 18:06 Pulse Oximetry 98 04/21/22 18:06 Oxygen Delivery Method 04/21/22 18:06 Course Course Course Narrative: No new issues during course of stay Orders Ordered: ED Orders 04/21/22 18:15 CT cervical spine wo con Stat CT head/brain wo con Stat 04/21/22 19:55 XR pelvis 1-2V Stat Discontinued Medications Diphtheria/Tetanus/Acell Pertussis (Tet,Diph,Pertuss(Acell),Vac/Pf 0.5 Ml Syringe) 0.5 ml IM .ONCE ONE Stop: 04/21/22 19:56 Last Admin: 04/21/22 20:14 Dose: 0.5 ml Documented By: RACH Ibuprofen (Ibuprofen 400 Mg Tablet) 800 mg PO NOW ONE Stop: 04/21/22 19:56 Last Admin: 04/21/22 20:13 Dose: 800 mg Documented By: RACH Reevaluation(s) Reevaluation #1: C-collar cleared. CT C-spine unremarkable. No midline tenderness or step-off. Time: 20:00 Reevaluation #2: Updated patient and . There is a long delay in reading of the x-ray of the pelvis here. Patient and desire discharge home. At this time I have reviewed the x-ray and grossly no acute abnormalities. Patient is ambulatory. They desire discharge home. Time: 21:40 Vital Signs Vital signs: Vital Signs - 8 hr 04/21/22 18:06 04/21/22 19:19 04/21/22 19:26 Temperature 98.2 F Pulse Rate 72 65 Respiratory Rate 16 17 Blood Pressure 138/87 131/84 Pulse Oximetry 98 96 Oxygen Delivery Method Room Air Room Air Room Air 04/21/22 21:45 Temperature Pulse Rate 65 Respiratory Rate 18 Blood Pressure 145/82 H Pulse Oximetry 99 Oxygen Delivery Method Room Air MDM - Fall Differential Diagnosis Differential diagnosis: Likely concussion with loss of consciousness, concussion without loss of consciousness and other (Contusion/abrasion/pelvic fracture) Imaging Data CT scan - head: Radiologist's Impression: [address] [address] [address] Scan Report Signed Patient: Neeraj Rodrigues MR#: [id number] : 1955 Acct:[id number] Age/Sex: 66 / M Date of Service: 04/21/22 Loc: ED Accession Number: [id number] ?? Procedure: CT head/brain wo con Ordering Provider: Yessy Garcia MD PROCEDURE:? CT HEAD/BRAIN WO CON ? INDICATIONS:? direct blow ? TECHNIQUE:? Noncontrast 4.5 mm thick angled axial sections acquired from the foramen magnum to the vertex, with coronal and sagittal reformats.? For radiation dose reduction, the following was used:? automated exposure control, adjustment of mA and/or kV according to patient size.? ? COMPARISON:? None. ? FINDINGS:? Image quality:? Excellent.? ? CSF spaces:? Basal cisterns are patent.? No extra-axial fluid collections.? Ventricles are normal in size and shape.? ? Brain:? No midline shift.? No intracranial masses or hemorrhage.? Rodriguez-white matter interface is normal.? ? Skull and face:? Calvarium and visualized facial bones are intact, without suspicious lesions.? ? Sinuses:? Visualized sinuses and mastoids are clear.? ? IMPRESSION:? No acute intracranial abnormality. ? ? ? Dictated by: Aris Mehta M.D. on 04/21/2022 at 18:45 ? ? Approved by: Aris Mehta M.D. on 04/21/2022 at 18:47 ? CT - cervical spine: Radiologist's Impression: [place] [address] CT Scan Report Signed Patient: Neeraj Rodrigues MR#: [id number] : 1955 Acct:[id number] Age/Sex: 66 / M Date of Service: 04/21/22 Loc: ED Accession Number: [id number] ?? Procedure: CT cervical spine wo con Ordering Provider: Yessy Garcia MD PROCEDURE:? CT CERVICAL SPINE WO CON ? INDICATIONS:? direct blow ? TECHNIQUE:? Noncontrast 3 mm thick sections acquired from the skull base to the T4 level.? Sagittal and coronal reformats were then constructed.? For radiation dose reduction, the following was used:? automated exposure control, adjustment of mA and/or kV according to patient size.? ? COMPARISON:? None. ? FINDINGS:? Image quality:? Excellent.? ? Bones:? No fractures or dislocations.? Visualized superior ribs are intact.? There is leftward curvature cervicothoracic spine the apex on the left C7 a Bell angle of 11?. ? Soft tissues:? Prevertebral soft tissues are normal in thickness.? No paravertebral hematomas.? No apical pneumothoraces.? ? IMPRESSION:? No acute traumatic abnormality of the cervical spine ? Dictated by: Aris Mehta M.D. on 04/21/2022 at 18:48 ? ? Approved by: Aris Mehta M.D. on 04/21/2022 at 18:50 ? Extremity x-ray #1: Radiologist's Impression: [address] [address] XRay Report Signed Patient: Neeraj Rodrigues MR#: [id number] : 1955 Acct:[id number] Age/Sex: 66 / M Date of Service: 04/21/22 Loc: ED Accession Number: [id number] ?? Procedure: XR pelvis 1-2V Ordering Provider: Neeraj Shipman MD PROCEDURE:? XR PELVIS 1-2V ? INDICATIONS:? fall/rt side pain ? TECHNIQUE:? 2 views of the pelvis acquired.? ? COMPARISON:? None. ? FINDINGS:? ? Bones:? No fractures or dislocations.? No suspicious bony lesions.? ? Soft tissues:? Visualized bowel gas pattern is normal.? No suspicious soft tissue calcifications.? ? IMPRESSION:? ? 1. No fracture or dislocation.? ? ? Dictated by: Nikolai Steward M.D. on 04/21/2022 at 21:38 ? ? Approved by: Nikolai Steward M.D. on 04/21/2022 at 21:38 ? MDM Narrative Medical decision making narrative: Appropriate for discharge home. Exam and imaging are reassuring. Patient and and I discussed results. Likely did have concussion. Head injury instructions given return precautions reviewed with him. Pain is controlled at time of discharge. Patient and desire discharge home. Not toxic at discharge. Discharge Plan Departure Patient Disposition: Home Clinical Impression: Abrasion of scalp, initial encounter, Concussion, Contusion of pelvis Instructions: DI for Contusion, DI for Trauma, DI for Closed Head Injury, DI for Abrasion Activity Restrictions/Additional Instructions: See family doctor next week for re-evaluation. Clean your scalp abrasion daily with warm soap and water and topical antibiotic. Return if worse if any questions or concerns. May continue Tylenol or ibuprofen for pain. At this time your x-rays and CT scans are reassuring. Prescriptions: No Action multivitamin Capsule 1 cap PO EVERY DAY Qty: 0 levothyroxine 100 mcg tablet 100 mcg PO DAILY Qty: 90 3RF atorvastatin [Lipitor] 10 mg tablet 10 mg PO HS Qty: 90 3RF cetirizine [Zyrtec] 10 mg Tablet 1 tab PO DAILY PRN (Reason: Allergy Symptoms) Referrals: Malik Anne DO [Primary Care Provider] - Visit Report Forms: Patient Portal/API
[2022-04-21] MEDS: IBUPROFEN 400 MG TABLET 800 MG PO (20:13)
[2022-04-21] MEDS: TET,DIPH,PERTUSS(ACELL),VAC/PF 0.5 ML SYRINGE IM (20:14)
--- NOTE | 2022-04-21 20:45 | PC.NURSE ---
C-collar removed by Dr. Shipman.
[2022-04-21 21:45] VITALS: BP 145/82; PULSE 65; RESP 18; O2SAT 99
== END 2022-04-21 21:49 | disposition home or self-care (01) ==
PROVIDERS: Emergency Provider Emergency Medicine; PCP Family Medicine
DX: S00.01XA Abrasion of scalp, initial encounter (principal); S06.0X0A Concussion without loss of consciousness, initial encounter; S30.0XXA Contusion of lower back and pelvis, initial encounter; R10.2 Pelvic and perineal pain; W11.XXXA Fall on and from ladder, initial encounter; Z23 Encounter for immunization
CPT/HCPCS: 70450; 72125; 72170; 90471; 99284; 90715

== ENCOUNTER → 2022-09-21 11:18 | Outpatient (CLI) | payer MEDICARE, OTHER, SELFPAY ==
[2022-09-21 12:19] LABS: Add Manual Diff / Slide Review NO; Basophils Absolute Auto 0 /uL (0-100); Basophils Percent Auto 0.5 % (0-2); Eosinophils Absolute Auto 100 /uL (0-450); Eosinophils Percent Auto 1.9 % (2-4); Hematocrit 46.3 % (41-53); Hemoglobin 16.1 g/dL (13.5-17.5); Lymphocytes Absolute Auto 1800 /uL (1100-4500); Lymphocytes Percent Auto 35.2 % (25-40); Mean Corpuscular HGB Conc 34.7 % (30-36); Mean Corpuscular Hemoglobin 32.4 PG (26-34); Mean Corpuscular Volume 93.2 fL (80-100); Monocytes Absolute Auto 500 /uL (0-900); Monocytes Percent Auto 9.1 % (3-14); Neutrophils Absolute Auto 2700 /uL (1500-7000); Neutrophils Percent Auto 53.3 % (50-75); Platelet Count 168 X10^3/uL (150-400); Red Blood Cell Count 4.97 X10^6/uL (4.5-5.9); Red Cell Distribution Width 12.9 % (11.6-14.8); White Blood Cell Count 5.1 X10^3/uL (4.5-11.0)
[2022-09-21 12:38] LABS: HEMOLYSIS < 15 (0-50)
[2022-09-21 12:39] LABS: Alanine Aminotransferase 21 IU/L (<50); Albumin 4.1 g/dL (3.5-5.0); Albumin Globulin Ratio 1.4 (1.0-2.8); Alkaline Phosphatase 61 U/L (38-126); Aspartate Aminotransferase 29 IU/L (17-59); BUN Creatinine Ratio 12.3 (6-22); Bilirubin Total 1.3 mg/dL (0.2-1.3); Blood Urea Nitrogen 15 mg/dL (9-20); Calcium 9.3 mg/dL (8.4-10.2); Carbon Dioxide 30 mmol/L (22-32); Chloride 102 mmol/L (98-107); Cholesterol 231 mg/dL (140-199); Estimated Glomerular Filt Rate > 60 mL/min (>60); Globulin 2.9 g/dL (1.7-4.1); Glucose 110 mg/dL (80-110); HDL Cholesterol 59 mg/dL (40-60); LDL Cholesterol Calculated 152 mg/dL (<100); Sodium 137 mmol/L (137-145); Triglycerides 99 mg/dL (35-150)
[2022-09-21 13:14] LABS: Potassium 4.6 mmol/L (3.4-5.1)
[2022-09-21 15:28] LABS: Free T3, Triiodothyronine Free 4.57 pg/mL (2.77-5.27)
[2022-09-21 15:42] LABS: Thyroid Stimulating Hormone 3.91 uIU/mL (0.47-4.68)
== END ==
PROVIDERS: PCP Family Medicine; Referring Provider Family Medicine; Visit Provider Family Medicine
DX: E03.9 Hypothyroidism, unspecified (principal); E78.2 Mixed hyperlipidemia
CPT/HCPCS: 36415; 80053; 80061; 84439; 84443; 84481; 85025

== ENCOUNTER → 2022-11-25 11:33 | Outpatient (CLI) | payer MEDICARE, OTHER, SELFPAY ==
--- NOTE | 2022-11-25 11:36 | DI.RAD.S_ITS ---
PROCEDURE: XR TOE LT MIN 2V INDICATIONS: Dropped weight on left great toe TECHNIQUE: 3 views of the 1st toe(s) acquired. COMPARISON: None. FINDINGS: Bones: Comminuted distal fracture involves the 1st distal phalanx. Joint spaces are preserved. Normal bone mineralization Soft tissues: No suspicious soft tissue densities. IMPRESSION: 1st distal phalanx comminuted fracture Approved by: Justo Dominguez M.D. on 11/25/2022 at 14:34
== END ==
PROVIDERS: PCP Family Medicine; Referring Provider Physician Assistant; Visit Provider Physician Assistant
DX: S92.422A Displaced fracture of distal phalanx of left great toe, initial encounter for closed fracture (principal); W20.8XXA Other cause of strike by thrown, projected or falling object, initial encounter
CPT/HCPCS: 73660

== ENCOUNTER → 2022-12-15 08:07 | Outpatient (CLI) | payer MEDICARE, OTHER, SELFPAY ==
--- NOTE | 2022-12-15 | DI.MRI.S_ITS ---
PROCEDURE: MR PELVIC PROSTATE PROTOCOL INDICATIONS: ELEVATED PSA TECHNIQUE: Coronal HASTE, axial T1 FSE with fat saturation, 3-plane nonbreath-hold T2 FSE. After the administration of contrast, dynamic axial, delayed axial and coronal VIBE or 2-D FLASH with fat saturation through the pelvis. Optional diffusion weighted imaging and ADC may be performed. COMPARISON: None. FINDINGS: Image quality: Diffusion weighted and dynamic contrast enhanced images are diagnostic. Prostate: 4.7 x 5.8 x 4 centimeters, estimated volume is 57 cc. Transitional zone heterogenous nodules are present, either well encapsulated or mostly encapsulated, compatible with PI-RADS 1 or 2 likely BPH nodules. There is median lobe hypertrophy projecting into the bladder neck. Mildly T2 hypointense heterogenous striated appearance of the peripheral zone is commonly seen with current or prior prostatitis, PI-RADS 2. Left posterolateral peripheral zone prostate mid gland lesion (4/15) (5/15) measuring about 7 x 7 x 8 millimeters. DWI score 3. T2 score 3. DCE positive. PI-RADS 4. Genitourinary system: Mild nonspecific bladder trabeculations and wall thickening. No hydroureter. Bowel and peritoneum: No pathologic ascites. There are colonic diverticula. Nodes and vessels: No pathologic lymph nodes by size criteria. Soft tissues: Pelvic wall is otherwise unremarkable. Bones: Unremarkable IMPRESSION: PI-RADS 4 lesion in the left posterolateral peripheral zone. Prostatomegaly, with sequelae of BPH and suspected prior prostatitis. Dictated by: Alejandro Hubbard M.D. on 12/15/2022 at 11:00 Approved by: Alejandro Hubbard M.D. on 12/15/2022 at 11:07
== END ==
PROVIDERS: PCP Family Medicine; Referring Provider Urology; Visit Provider Urology
DX: R97.20 Elevated prostate specific antigen [PSA] (principal); N40.0 Benign prostatic hyperplasia without lower urinary tract symptoms
CPT/HCPCS: 72197; A9579

== ENCOUNTER → 2022-12-19 09:18 | Outpatient (CLI) | payer MEDICARE, OTHER, SELFPAY ==
[2022-12-19 11:08] LABS: Cholesterol 210 mg/dL (140-199); HDL Cholesterol 53 mg/dL (40-60); LDL Cholesterol Calculated 132 mg/dL (<100); Triglycerides 126 mg/dL (35-150)
== END ==
PROVIDERS: PCP Family Medicine; Referring Provider Family Medicine; Visit Provider Family Medicine
DX: E78.2 Mixed hyperlipidemia (principal)
CPT/HCPCS: 36415; 80061

== ENCOUNTER → 2023-07-27 08:22 | Outpatient (CLI) | payer MEDICARE, OTHER, SELFPAY ==
[2023-07-27 09:22] LABS: Cholesterol 170 mg/dL (140-199); HDL Cholesterol 41 mg/dL (40-60); LDL Cholesterol Calculated 102 mg/dL (<100); Triglycerides 133 mg/dL (35-150)
== END ==
PROVIDERS: PCP Family Medicine; Referring Provider Family Medicine; Visit Provider Family Medicine
DX: E78.2 Mixed hyperlipidemia (principal); K57.92 Diverticulitis of intestine, part unspecified, without perforation or abscess without bleeding; Z79.899 Other long term (current) drug therapy
CPT/HCPCS: 36415; 80061

== ENCOUNTER → 2023-11-13 11:21 | Outpatient (CLI) | payer MEDICARE, OTHER, SELFPAY ==
[2023-11-13 12:23] LABS: Add Manual Diff / Slide Review NO; Basophils Absolute Auto 0 /uL (0-100); Basophils Percent Auto 0.6 % (0-2); Eosinophils Absolute Auto 200 /uL (0-450); Eosinophils Percent Auto 3.7 % (2-4); Hematocrit 44.4 % (41-53); Lymphocytes Absolute Auto 1600 /uL (1100-4500); Lymphocytes Percent Auto 25.9 % (25-40); Mean Corpuscular HGB Conc 33.9 % (30-36); Mean Corpuscular Volume 94.5 fL (80-100); Monocytes Absolute Auto 400 /uL (0-900); Monocytes Percent Auto 7.3 % (3-14); Neutrophils Absolute Auto 3900 /uL (1500-7000); Neutrophils Percent Auto 62.5 % (50-75); Platelet Count 166 X10^3/uL (150-400); Red Blood Cell Count 4.69 X10^6/uL (4.5-5.9); Red Cell Distribution Width 13.2 % (11.6-14.8); White Blood Cell Count 6.2 X10^3/uL (4.5-11.0)
[2023-11-13 12:26] LABS: Hemoglobin A1C% w Est Avg Glu 5.5 % (4.0-6.0)
[2023-11-13 13:02] LABS: Alanine Aminotransferase 18 IU/L (<50); Albumin 4.2 g/dL (3.5-5.0); Albumin Globulin Ratio 1.8 (1.0-2.8); Alkaline Phosphatase 57 U/L (38-126); Aspartate Aminotransferase 32 IU/L (17-59); Blood Urea Nitrogen 18 mg/dL (9-20); Calcium 9.2 mg/dL (8.4-10.2); Carbon Dioxide 28 mmol/L (22-32); Chloride 107 mmol/L (98-107); Estimated Glomerular Filt Rate > 60 mL/min (>60); Globulin 2.4 g/dL (1.7-4.1); Glucose 134 mg/dL (80-110); HEMOLYSIS < 15 (0-50); Potassium 4.1 mmol/L (3.4-5.1); Sodium 139 mmol/L (137-145); Total Protein 6.6 g/dL (6.3-8.2)
[2023-11-13 13:35] LABS: TSH w/ Reflex to FT4 1.52 uIU/mL (0.47-4.68)
[2023-11-13 13:50] LABS: Vitamin B12 506 pg/mL (239-931)
[2023-11-15 16:46] LABS: Hep C Virus Ab w/Reflex Quant NEGATIVE s/c (NEGATIVE)
== END ==
PROVIDERS: PCP Family Medicine; Referring Provider Family Medicine; Visit Provider Family Medicine
DX: Z00.00 Encounter for general adult medical examination without abnormal findings (principal); E78.2 Mixed hyperlipidemia; I10 Essential (primary) hypertension; E03.9 Hypothyroidism, unspecified; R20.0 Anesthesia of skin
CPT/HCPCS: 36415; 80053; 82607; 83036; 84443; 85025; 86803

== ENCOUNTER → 2024-10-13 08:45 | Outpatient (CLI) | payer MEDICARE, OTHER, SELFPAY ==
[2024-10-13 09:54] LABS: Mean Corpuscular HGB Conc 33.4 % (30-36); Mean Corpuscular Hemoglobin 31.8 PG (26-34); Mean Corpuscular Volume 95.4 fL (80-100); Platelet Count 172 X10^3/uL (150-400); Red Blood Cell Count 4.72 X10^6/uL (4.5-5.9); Red Cell Distribution Width 13.3 % (11.6-14.8); White Blood Cell Count 5.2 X10^3/uL (4.5-11.0)
[2024-10-13 10:05] LABS: Hemoglobin A1C% w Est Avg Glu 5.3 % (4.0-6.0)
[2024-10-13 10:13] LABS: Alanine Aminotransferase 24 IU/L (<50); Albumin 4.1 g/dL (3.5-5.0); Albumin Globulin Ratio 1.8 (1.0-2.8); Alkaline Phosphatase 60 U/L (38-126); Aspartate Aminotransferase 36 IU/L (17-59); BUN Creatinine Ratio 17.1 (6-22); Blood Urea Nitrogen 20 mg/dL (9-20); Calcium 9.5 mg/dL (8.4-10.2); Carbon Dioxide 28 mmol/L (22-32); Chloride 106 mmol/L (98-107); Cholesterol 206 mg/dL (140-199); Estimated Glomerular Filt Rate > 60 mL/min (>60); Globulin 2.3 g/dL (1.7-4.1); Glucose 102 mg/dL (70-99); HDL Cholesterol 54 mg/dL (40-60); HEMOLYSIS < 15 (0-50); LDL Cholesterol Calculated 134 mg/dL (<100); Potassium 4.6 mmol/L (3.4-5.1); Sodium 139 mmol/L (137-145); Total Protein 6.4 g/dL (6.3-8.2); Triglycerides 91 mg/dL (35-150)
[2024-10-13 10:45] LABS: TSH w/ Reflex to FT4 5.12 uIU/mL (0.47-4.68)
[2024-10-13 11:12] LABS: Free T4, Direct Thyroxine 1.23 ng/dL (0.78-2.19)
== END ==
PROVIDERS: PCP Family Medicine; Referring Provider Family Medicine; Visit Provider Family Medicine
DX: K57.92 Diverticulitis of intestine, part unspecified, without perforation or abscess without bleeding (principal); R73.01 Impaired fasting glucose; E78.2 Mixed hyperlipidemia; Z00.00 Encounter for general adult medical examination without abnormal findings; E03.9 Hypothyroidism, unspecified; R20.0 Anesthesia of skin
CPT/HCPCS: 36415; 80053; 80061; 83036; 84439; 84443; 85027

== ENCOUNTER → 2025-05-06 09:00 | Outpatient (CLI) | payer MEDICARE, OTHER, SELFPAY ==
[2025-05-06 10:39] LABS: Alanine Aminotransferase 21 IU/L (<50); Albumin 4.2 g/dL (3.5-5.0); Albumin Globulin Ratio 1.6 (1.0-2.8); Alkaline Phosphatase 52 U/L (38-126); Blood Urea Nitrogen 20 mg/dL (9-20); Calcium 9.2 mg/dL (8.4-10.2); Carbon Dioxide 25 mmol/L (22-32); Chloride 106 mmol/L (98-107); Cholesterol 213 mg/dL (140-199); Estimated Glomerular Filt Rate > 60 mL/min (>60); Globulin 2.7 g/dL (1.7-4.1); Glucose 100 mg/dL (70-99); HDL Cholesterol 59 mg/dL (40-60); HEMOLYSIS < 15 (0-50); Potassium 4.2 mmol/L (3.4-5.1); Sodium 139 mmol/L (137-145); Total Protein 6.9 g/dL (6.3-8.2); Triglycerides 120 mg/dL (35-150)
[2025-05-06 11:06] LABS: TSH w/ Reflex to FT4 2.79 uIU/mL (0.47-4.68)
== END ==
PROVIDERS: PCP Family Medicine; Referring Provider Family Medicine; Visit Provider Family Medicine
DX: Z00.00 Encounter for general adult medical examination without abnormal findings (principal); E78.2 Mixed hyperlipidemia; E03.9 Hypothyroidism, unspecified
CPT/HCPCS: 36415; 80053; 80061; 84443